=== PATIENT | female | born 1960 | race Caucasian/White ===

== ENCOUNTER 2021-01-17 14:56 | Inpatient (IN) | payer BC ==
[~2021-01-17] VITALS: Ht 157.5 cm; Wt 66.2 kg
--- NOTE | 2021-01-17 15:27 | PHYS DOC ---
Past Medical History Past Medical History: No Pertinent History Past Surgical History: Other Additional Past Surgical Histo: Right thumb reattached Smoking Status: Never Smoker General Adult EDM: Chief Complaint: SHORTNESS OF BREATH HPI: HPI: Patient is a 60-year-old female that presents today via [facility] with increased shortness of breath. Patient states she was diagnosed positive for Covid on January 08, she states that since of this week January 15 she has had increased shortness of breath. Patient was seen at a clinic in her hometown and on Tuesday and was given an inhaler for increased shortness of breath and instructed to follow-up in the emergency department if shortness of breath increased. Per EMS result report patient was 70 to 80% on room air with exertion at the scene, patient was placed on 2 L via nasal cannula and her sats increased to 92%. Patient has not had the Covid vaccine. Review of Systems: Review of Systems: Constitutional: Denies fever or chills. [] Eyes: Denies change in visual acuity. [] HENT: Denies nasal congestion or sore throat. [] Respiratory: cough or shortness of breath. [] Cardiovascular: chest pain with coughing reported GI: Denies abdominal pain, nausea, vomiting, bloody stools or diarrhea. [] : Denies dysuria. [] Musculoskeletal: Denies back pain or joint pain. [] Integument: Denies rash. [] Neurologic: Denies headache, focal weakness or sensory changes. [] Endocrine: Denies polyuria or polydipsia. [] Lymphatic: Denies swollen glands. [] Psychiatric: Denies depression or anxiety. [] Heart Score: C/O Chest Pain: N/A Risk Factors: Risk Factors: DM, Current or recent (<one month) smoker, HTN, HLP, family history of CAD, obesity. Risk Scores: Score 0 - 3: 2.5% MACE over next 6 weeks - Discharge Home Score 4 - 6: 20.3% MACE over next 6 weeks - Admit for Clinical Observation Score 7 - 10: 72.7% MACE over next 6 weeks - Early Invasive Strategies Current Medications: Current Medications Medications (Trade) Dose Ordered Sig/Narendra Start Time Stop Time Status Last Admin Dose Admin Dexamethasone Sodium Phosphate (Decadron) 10 mg 1X ONCE 01/17/21 15:30 01/17/21 15:31 Allergies: Allergies: Allergies Coded Allergies Type Severity Reaction Last Updated Verified No Known Drug Allergies 08/19/16 No Physical Exam: PE: Constitutional: Well developed, well nourished, moderate distress HENT: Normocephalic, atraumatic, bilateral external ears normal, oropharynx moist, no oral exudates, nose normal. [] Eyes: PERRLA, EOMI, conjunctiva normal, no discharge. [] Neck: Normal range of motion, no tenderness, supple, no stridor. [] Cardiovascular:Heart rate regular and tachycardia Lungs & Thorax: Bilateral breath sound crackes and nonproductive cough Abdomen: Bowel sounds normal, soft, no tenderness, no masses, no pulsatile masses. [] Skin: Warm, dry, no erythema, no rash. [] Back: No tenderness, no CVA tenderness. [] Extremities: No tenderness, no cyanosis, no clubbing, ROM intact, no edema. [] Neurologic: Alert and oriented X 3, normal motor function, normal sensory function, no focal deficits noted. [] Psychologic: Affect normal, judgement normal, mood normal. [] Current Patient Data: Labs: Laboratory Tests Test 01/17/21 15:30 White Blood Count 5.8 x10^3/uL Red Blood Count 4.11 x10^6/uL Hemoglobin 12.6 g/dL Hematocrit 35.9 % Mean Corpuscular Volume 87 fL Mean Corpuscular Hemoglobin 31 pg Mean Corpuscular Hemoglobin Concent 35 g/dL Red Cell Distribution Width 12.3 % Platelet Count 185 x10^3/uL Neutrophils (%) (Auto) 88 % Lymphocytes (%) (Auto) 9 % Monocytes (%) (Auto) 3 % Eosinophils (%) (Auto) 0 % Basophils (%) (Auto) 0 % Neutrophils # (Auto) 5.1 x10^3/uL Lymphocytes # (Auto) 0.5 x10^3/uL Monocytes # (Auto) 0.2 x10^3/uL Eosinophils # (Auto) 0.0 x10^3/uL Basophils # (Auto) 0.0 x10^3/uL Sodium Level 132 mmol/L Potassium Level 4.6 mmol/L Chloride Level 96 mmol/L Carbon Dioxide Level 29 mmol/L Anion Gap 7 Blood Urea Nitrogen 10 mg/dL Creatinine 0.8 mg/dL Estimated GFR (Cockcroft-Gault) 73.4 BUN/Creatinine Ratio 13 Glucose Level 116 mg/dL Calcium Level 8.3 mg/dL Total Bilirubin 0.4 mg/dL Aspartate Amino Transf (AST/SGOT) 78 U/L Alanine Aminotransferase (ALT/SGPT) 57 U/L Alkaline Phosphatase 46 U/L Total Protein 7.2 g/dL Albumin 3.0 g/dL Albumin/Globulin Ratio 0.7 Current Medications Medications (Trade) Dose Ordered Sig/Narendra Route PRN Reason Start Time Stop Time Status Last Admin Dose Admin Dexamethasone Sodium Phosphate (Decadron) 10 mg 1X ONCE IV 01/17/21 15:30 01/17/21 15:31 DC 01/17/21 15:35 Acetaminophen (Tylenol) 1,000 mg 1X ONCE PO 01/17/21 16:15 01/17/21 16:16 Vital Signs: Vital Signs Date Time Temp Pulse Resp B/P (MAP) Pulse Ox O2 Delivery O2 Flow Rate FiO2 01/17/21 14:59 102.3 104 34 119/58 (78) 95 3.0 102.3 EKG: EKG: EKG completed at 1521 shows sinus tachycardia with no ectopy no STEMI per Dr. Avilez at 1527 [] Radiology/Procedures: Radiology/Procedures: PROCEDURE: CHEST AP ONLY XR CHEST 1V Clinical History: Reason: SOA / Spl. Instructions: / History: Technique: AP view of the chest was obtained at 01/17/2021 3:21 PM. Comparison: January 08, 2021. Findings: The heart is mildly large. The portal vessels appear normal. There is patchy peripheral opacities in the mid and lower lungs bilaterally. Impression: Moderate bilateral pulmonary infiltrates likely atypical pneumonia. Electronically signed by: Anthony Luther III, MD (01/17/2021 3:24 PM) [facility] Course & Med Decision Making: Course & Med Decision Making Pertinent Labs and Imaging studies reviewed. (See chart for details) 1620 reexamine of patient patient's respiratory rate continues to be 39, O2 sat on 3 L is 95%, HR99 patient states she feels better, and for patient because of increased oxygen demand and the need for oxygen patient will be admitted to the hospital [address] Arias patient will be admitted to their service with a consult to pulmonary. [] Dragon Disclaimer: Dragon Disclaimer: This electronic medical record was generated, in whole or in part, using a voice recognition dictation system. Departure Departure Impression: Primary Impression: COVID-19 Additional Impression: Shortness of breath Disposition: 09 ADMITTED INPATIENT Admitting Physician: DORIS Condition: GUARDED Referrals: NO PCP (PCP) Scripts No Active Prescriptions or Reported Meds ANGELA PAULSON APRN Jan 17, 2021 15:27
[2021-01-17] MEDS ORDERED: DEXAMETHASONE SOD PHOS 20 MG/5 ML VIAL. IV ONE (15:30)
[2021-01-17 15:43] LABS: BASO % 0 % (0-3); EOS % 0 % (0-3); HEMATOCRIT 35.9 % (36.0-47.0); HEMOGLOBIN 12.6 g/dL (12.0-15.5); LYMPH # 0.5 x10^3/uL (1.0-4.8); LYMPH % 9 % (24-48); MEAN CORPUSCULAR HEMOGLOBIN 31 pg (25-35); MEAN CORPUSCULAR HGB CONC 35 g/dL (31-37); MEAN CORPUSCULAR VOLUME 87 fL (79-100); MONO # 0.2 x10^3/uL (0.0-1.1); MONO % 3 % (0-9); NEUT # 5.1 x10^3/uL (1.8-7.7); NEUT % 88 % (31-73); PLATELET COUNT 185 x10^3/uL (140-400); RED BLOOD COUNT 4.11 x10^6/uL (3.50-5.40); RED CELL DISTRIBUTION WIDTH 12.3 % (11.5-14.5); WHITE BLOOD COUNT 5.8 x10^3/uL (4.0-11.0)
[2021-01-17 16:03] LABS: CALCIUM 8.3 mg/dL (8.5-10.1); CREATININE 0.8 mg/dL (0.6-1.0); GFR 73.4; POTASSIUM 4.6 mmol/L (3.5-5.1)
[2021-01-17 16:06] LABS: ALBUMIN/GLOBULIN RATIO 0.7 (1.0-1.7); TOTAL BILIRUBIN 0.4 mg/dL (0.2-1.0); TOTAL PROTEIN 7.2 g/dL (6.4-8.2)
[2021-01-17] MEDS ORDERED: ACETAMINOPHEN 500 MG TABLET PO ONE (16:15)
[2021-01-17] MEDS ORDERED: ACETAMINOPHEN 325 MG TABLET. PO PRN ×2 (17:00→17:30)
[2021-01-17] MEDS ORDERED: DEXTROSE 50% 25 GM / 50ML DISP.SYRIN. IV PRN (17:30)
[2021-01-17] MEDS ORDERED: DOCUSATE SODIUM 100 MG CAPSULE. PO PRN (17:30)
[2021-01-17] MEDS ORDERED: PROCHLORPERAZINE 10 MG/2 ML VIAL. IV PRN (17:30)
[2021-01-17] MEDS ORDERED: SENNOSIDES 8.6 MG TABLET PO PRN (17:30)
[2021-01-17] MEDS ORDERED: ZOLPIDEM 5 MG TABLET. PO PRN (17:30)
[2021-01-17] MEDS ORDERED: ONDANSETRON PF 4 MG/2 ML VIAL. IVP PRN (17:30)
--- NOTE | 2021-01-17 17:37 | PDOC1 ---
History and Physical Date of Service: DOS: DATE: 01/17/21 TIME: 17:28 Chief Complaint: Chief Complain: Shortness of breath History of Present Illness: HPI: History obtained from discussion with the ED nurse practitioner and chart review: 60-year-old female with no significant past medical history who presents via EMS with increased shortness of breath for the past 3 days. She was diagnosed with Covid on January 08. She was seen on Tuesday in the clinic for shortness of breath and she was given an inhaler and was sent home. In route patient's O2 saturations was between 70 to 80% on room air she was placed on a 3 L nasal cannula and her O2 saturation improved to 91%. Denies fevers, nausea vomiting, diarrhea, abdominal pain, chest pain, dysuria or hematuria. Past Medical/Surgical History: PMH/PSH: Past Medical History: No Pertinent History Past Surgical History: Right thumb reattached Allergies: Allergies: Coded Allergies: No Known Drug Allergies (Unverified , 08/19/16) Family History: Family History: Reviewed with no relevant findings Social History: Social History: Smoking Status: Never Smoker Current Medications: Current Medications Current Medications Dexamethasone Sodium Phosphate (Decadron) 10 mg 1X ONCE IV Last administered on 01/17/21at 15:35; Start 01/17/21 at 15:30; Stop 01/17/21 at 15:31; Status DC Acetaminophen (Tylenol) 1,000 mg 1X ONCE PO Last administered on 01/17/21at 16:21; Start 01/17/21 at 16:15; Stop 01/17/21 at 16:16; Status DC Remdesivir 200 mg/ Sodium Chloride 210 ml @ 210 mls/hr 1X ONCE IV ; Start 01/17/21 at 18:00; Stop 01/17/21 at 18:59 Remdesivir 100 mg/ Sodium Chloride 230 ml @ 460 mls/hr Q24H IV ; Start 01/18/21 at 18:00; Stop 01/21/21 at 18:29 Acetaminophen (Tylenol) 650 mg PRN Q4HRS PRN PO FEVER > 100.3'F; Start 01/17/21 at 17:00; Stop 01/18/21 at 16:59 Active Scripts Active No Active Prescriptions or Reported Medications ROS: Review of Systems Review of System REVIEW OF SYSTEMS: GENERAL: Denies weakness SKIN: No bruising, hair changes or rashes. EYES: No blurred, double or loss of vision. NOSE AND THROAT: No history of nosebleeds, hoarseness or sore throat. HEART: No history of palpitations, chest pain or shortness of breath on exertion. LUNGS: Denies cough, hemoptysis, wheezing or shortness of breath. GASTROINTESTINAL: Denies changes in appetite, nausea, vomiting, diarrhea or constipation. GENITOURINARY: No history of frequency, urgency, hesitancy or nocturia. NEUROLOGIC: Denies history of numbness, tingling, or tremor. PSYCHIATRIC: No history of panic, anxiety or depression. ENDOCRINE: No history of heat or cold intolerance, polyuria or polydipsia. EXTREMITIES: Denies joint pain, pain on walking or stiffness. Physical Exam: Vital Signs: Vital Signs Date Time Temp Pulse Resp B/P (MAP) Pulse Ox O2 Delivery O2 Flow Rate FiO2 01/17/21 14:59 102.3 104 34 119/58 (78) 95 3.0 102.3 Physcial Exam: GEN: No apparent distress. Alert and oriented HEENT: Normal cephalic, atraumatic, external auditory canals are patent EYES: Extraocular muscles are intact, pupil are equally round and reactive to light and accommodation MUSCULOSKELETAL: Well developed , well nourished, good range of motion ENDOCRINE: No thyromegaly was palpated LYMPHATICS: No cervical chain or axillary nodes were noted HEMATOPOIETIC: No bruising NECK: Supple, no JVD, no thyromegaly was noted LUNGS: Clear to auscultation in all lung singh without rhonchi or wheezing HEART: RRR, S!, S2 present. Peripheral pulses intact, no obvious murmurs noted ABDOMEN: Soft, nontender. Positive bowel sounds, no organomegaly, normal bowel sounds EXTREMITIES: Without clubbing, cyanosis, or edema. Pedal pulses intact. Negative Homans sign NEUROLOGIC: Normal speech and tone. A&O x 3, moves all extremities, no obvious focal deficits PSYCHIATRIC: Normal affect, normal mood. Stable SKIN: No ulcerations or rashes, good skin turgor, no jaundice VASCULAR: Good capillary refill, neurovascular bundle appears to be intact Labs: Labs: Laboratory Tests Test 01/17/21 15:30 White Blood Count 5.8 x10^3/uL (4.0-11.0) Red Blood Count 4.11 x10^6/uL (3.50-5.40) Hemoglobin 12.6 g/dL (12.0-15.5) Hematocrit 35.9 % (36.0-47.0) Mean Corpuscular Volume 87 fL (79-100) Mean Corpuscular Hemoglobin 31 pg (25-35) Mean Corpuscular Hemoglobin Concent 35 g/dL (31-37) Red Cell Distribution Width 12.3 % (11.5-14.5) Platelet Count 185 x10^3/uL (140-400) Neutrophils (%) (Auto) 88 % (31-73) Lymphocytes (%) (Auto) 9 % (24-48) Monocytes (%) (Auto) 3 % (0-9) Eosinophils (%) (Auto) 0 % (0-3) Basophils (%) (Auto) 0 % (0-3) Neutrophils # (Auto) 5.1 x10^3/uL (1.8-7.7) Lymphocytes # (Auto) 0.5 x10^3/uL (1.0-4.8) Monocytes # (Auto) 0.2 x10^3/uL (0.0-1.1) Eosinophils # (Auto) 0.0 x10^3/uL (0.0-0.7) Basophils # (Auto) 0.0 x10^3/uL (0.0-0.2) Sodium Level 132 mmol/L (136-145) Potassium Level 4.6 mmol/L (3.5-5.1) Chloride Level 96 mmol/L (98-107) Carbon Dioxide Level 29 mmol/L (21-32) Anion Gap 7 (6-14) Blood Urea Nitrogen 10 mg/dL (7-20) Creatinine 0.8 mg/dL (0.6-1.0) Estimated GFR (Cockcroft-Gault) 73.4 BUN/Creatinine Ratio 13 (6-20) Glucose Level 116 mg/dL (70-99) Calcium Level 8.3 mg/dL (8.5-10.1) Total Bilirubin 0.4 mg/dL (0.2-1.0) Aspartate Amino Transf (AST/SGOT) 78 U/L (15-37) Alanine Aminotransferase (ALT/SGPT) 57 U/L (14-59) Alkaline Phosphatase 46 U/L (46-116) Total Protein 7.2 g/dL (6.4-8.2) Albumin 3.0 g/dL (3.4-5.0) Albumin/Globulin Ratio 0.7 (1.0-1.7) Laboratory Tests Test 01/17/21 15:30 White Blood Count 5.8 x10^3/uL (4.0-11.0) Red Blood Count 4.11 x10^6/uL (3.50-5.40) Hemoglobin 12.6 g/dL (12.0-15.5) Hematocrit 35.9 % (36.0-47.0) Mean Corpuscular Volume 87 fL (79-100) Mean Corpuscular Hemoglobin 31 pg (25-35) Mean Corpuscular Hemoglobin Concent 35 g/dL (31-37) Red Cell Distribution Width 12.3 % (11.5-14.5) Platelet Count 185 x10^3/uL (140-400) Neutrophils (%) (Auto) 88 % (31-73) Lymphocytes (%) (Auto) 9 % (24-48) Monocytes (%) (Auto) 3 % (0-9) Eosinophils (%) (Auto) 0 % (0-3) Basophils (%) (Auto) 0 % (0-3) Neutrophils # (Auto) 5.1 x10^3/uL (1.8-7.7) Lymphocytes # (Auto) 0.5 x10^3/uL (1.0-4.8) Monocytes # (Auto) 0.2 x10^3/uL (0.0-1.1) Eosinophils # (Auto) 0.0 x10^3/uL (0.0-0.7) Basophils # (Auto) 0.0 x10^3/uL (0.0-0.2) Sodium Level 132 mmol/L (136-145) Potassium Level 4.6 mmol/L (3.5-5.1) Chloride Level 96 mmol/L (98-107) Carbon Dioxide Level 29 mmol/L (21-32) Anion Gap 7 (6-14) Blood Urea Nitrogen 10 mg/dL (7-20) Creatinine 0.8 mg/dL (0.6-1.0) Estimated GFR (Cockcroft-Gault) 73.4 BUN/Creatinine Ratio 13 (6-20) Glucose Level 116 mg/dL (70-99) Calcium Level 8.3 mg/dL (8.5-10.1) Total Bilirubin 0.4 mg/dL (0.2-1.0) Aspartate Amino Transf (AST/SGOT) 78 U/L (15-37) Alanine Aminotransferase (ALT/SGPT) 57 U/L (14-59) Alkaline Phosphatase 46 U/L (46-116) Total Protein 7.2 g/dL (6.4-8.2) Albumin 3.0 g/dL (3.4-5.0) Albumin/Globulin Ratio 0.7 (1.0-1.7) Images: Images PROCEDURE: CHEST AP ONLY Impression: Moderate bilateral pulmonary infiltrates likely atypical pneumonia. Assessment/Plan Assessment/Plan Acute hypoxic respiratory failure COVID-19 pneumonia Acute electrolyte derangementhyponatremia, hypochloremia suggestive of volume depletion Moderate protein malnutrition Admit to medicine for further management Pulmonology consult Continue IV thiamine and vitamin C IV Solu-Medrol every 8 hours IV Remdesivir if patient requires O2 supplementation beyond there baseline Pending ferritin, LDH, CRP, D-dimer labs Titrate O2 supplementation to maintain O2 saturation greater than 92% Empiric IV antibiotics if patient has clinical presentation for bacterial pneumonia [] for DVT prophylaxis [] GI prophylaxis ADA diet Full code Discussed with RN and SW Disposition [] Surrogate decision maker is the [] Justifications for Admission Other Justification GYPSY SLATER MD Jan 17, 2021 17:37
[2021-01-17] MEDS ORDERED: REMDESIVIR LOAD in IV NORMAL SALINE 250ML TV IV ONE (18:00)
[2021-01-17] MEDS: PANTOPRAZOLE 40 MG TABLET.DR. PO SCH (19:23)
--- NOTE | 2021-01-17 19:42 | EKG ---
[facility] [address] [place] [address] Test Date: 2021-01-17 Test Time: 15:21:02 Pat Name: DOM JESUS Department: Room: [facility] Gender: F Statement Clerks Supervisor: : 1960 Requested By: ANGELA PAULSON Order Number: [id number] Reading MD: Jake Segovia Measurements Intervals [place] Rate: 107 P: -121 MS: 104 QRS: 27 QRSD: 72 T: 37 QT: 300 QTc: 405 Interpretive Statements SINUS TACHYCARDIA Electronically Signed On 01-18-2021 16:38:57 CDT by Jake Segovia
[2021-01-17 21:43] VITALS: BP 99/55
[2021-01-17] MEDS: ASCORBIC ACID 1,000 MG TABLET PO SCH (23:02)
[2021-01-17] MEDS: ENOXAPARIN 40 MG/0.4 ML SYRINGE. SQ SCH (23:02)
[2021-01-17] MEDS: ZINC SULFATE 220 MG CAPSULE. PO SCH (23:03)
[2021-01-17] MEDS: THIAMINE 100 MG TABLET. PO SCH (23:03)
[2021-01-18 03:00] VITALS: BP 101/59
[2021-01-18 05:16] LABS: BASO % 0 % (0-3); EOS % 0 % (0-3); HEMATOCRIT 36.7 % (36.0-47.0); HEMOGLOBIN 12.9 g/dL (12.0-15.5); LYMPH # 0.5 x10^3/uL (1.0-4.8); LYMPH % 12 % (24-48); MEAN CORPUSCULAR HEMOGLOBIN 31 pg (25-35); MEAN CORPUSCULAR HGB CONC 35 g/dL (31-37); MEAN CORPUSCULAR VOLUME 88 fL (79-100); MONO # 0.2 x10^3/uL (0.0-1.1); MONO % 4 % (0-9); NEUT # 3.3 x10^3/uL (1.8-7.7); NEUT % 84 % (31-73); PLATELET COUNT 208 x10^3/uL (140-400); RED BLOOD COUNT 4.17 x10^6/uL (3.50-5.40); RED CELL DISTRIBUTION WIDTH 12.4 % (11.5-14.5); WHITE BLOOD COUNT 3.9 x10^3/uL (4.0-11.0)
[2021-01-18 05:54] LABS: CALCIUM 8.6 mg/dL (8.5-10.1); CREATININE 0.7 mg/dL (0.6-1.0); GFR 85.6; MAGNESIUM 2.5 mg/dL (1.8-2.4); PHOSPHORUS 3.1 mg/dL (2.6-4.7); POTASSIUM 3.7 mmol/L (3.5-5.1)
--- NOTE | 2021-01-18 06:43 | PDOC ---
PULMONARY PROGRESS NOTES DATE: 01/18/21 TIME: 06:42 Vitals Vital Signs Date Time Temp Pulse Resp B/P (MAP) Pulse Ox O2 Delivery O2 Flow Rate FiO2 01/18/21 03:00 98.1 69 18 101/59 (73) 5.0 98.1 01/17/21 21:43 92 Nasal Cannula Labs Laboratory Tests Test 01/17/21 15:30 01/18/21 04:55 White Blood Count 5.8 x10^3/uL (4.0-11.0) 3.9 x10^3/uL (4.0-11.0) Red Blood Count 4.11 x10^6/uL (3.50-5.40) 4.17 x10^6/uL (3.50-5.40) Hemoglobin 12.6 g/dL (12.0-15.5) 12.9 g/dL (12.0-15.5) Hematocrit 35.9 % (36.0-47.0) 36.7 % (36.0-47.0) Mean Corpuscular Volume 87 fL (79-100) 88 fL (79-100) Mean Corpuscular Hemoglobin 31 pg (25-35) 31 pg (25-35) Mean Corpuscular Hemoglobin Concent 35 g/dL (31-37) 35 g/dL (31-37) Red Cell Distribution Width 12.3 % (11.5-14.5) 12.4 % (11.5-14.5) Platelet Count 185 x10^3/uL (140-400) 208 x10^3/uL (140-400) Neutrophils (%) (Auto) 88 % (31-73) 84 % (31-73) Lymphocytes (%) (Auto) 9 % (24-48) 12 % (24-48) Monocytes (%) (Auto) 3 % (0-9) 4 % (0-9) Eosinophils (%) (Auto) 0 % (0-3) 0 % (0-3) Basophils (%) (Auto) 0 % (0-3) 0 % (0-3) Neutrophils # (Auto) 5.1 x10^3/uL (1.8-7.7) 3.3 x10^3/uL (1.8-7.7) Lymphocytes # (Auto) 0.5 x10^3/uL (1.0-4.8) 0.5 x10^3/uL (1.0-4.8) Monocytes # (Auto) 0.2 x10^3/uL (0.0-1.1) 0.2 x10^3/uL (0.0-1.1) Eosinophils # (Auto) 0.0 x10^3/uL (0.0-0.7) 0.0 x10^3/uL (0.0-0.7) Basophils # (Auto) 0.0 x10^3/uL (0.0-0.2) 0.0 x10^3/uL (0.0-0.2) Sodium Level 132 mmol/L (136-145) 138 mmol/L (136-145) Potassium Level 4.6 mmol/L (3.5-5.1) 3.7 mmol/L (3.5-5.1) Chloride Level 96 mmol/L (98-107) 101 mmol/L (98-107) Carbon Dioxide Level 29 mmol/L (21-32) 29 mmol/L (21-32) Anion Gap 7 (6-14) 8 (6-14) Blood Urea Nitrogen 10 mg/dL (7-20) 13 mg/dL (7-20) Creatinine 0.8 mg/dL (0.6-1.0) 0.7 mg/dL (0.6-1.0) Estimated GFR (Cockcroft-Gault) 73.4 85.6 BUN/Creatinine Ratio 13 (6-20) Glucose Level 116 mg/dL (70-99) 144 mg/dL (70-99) Calcium Level 8.3 mg/dL (8.5-10.1) 8.6 mg/dL (8.5-10.1) Total Bilirubin 0.4 mg/dL (0.2-1.0) Aspartate Amino Transf (AST/SGOT) 78 U/L (15-37) Alanine Aminotransferase (ALT/SGPT) 57 U/L (14-59) Alkaline Phosphatase 46 U/L (46-116) C-Reactive Protein, Quantitative 101.0 mg/L (0-3.3) Total Protein 7.2 g/dL (6.4-8.2) Albumin 3.0 g/dL (3.4-5.0) Albumin/Globulin Ratio 0.7 (1.0-1.7) D-Dimer (Jessi) 0.62 ug/mlFEU (0.00-0.50) Phosphorus Level 3.1 mg/dL (2.6-4.7) Magnesium Level 2.5 mg/dL (1.8-2.4) Laboratory Tests Test 01/17/21 15:30 01/18/21 04:55 White Blood Count 5.8 x10^3/uL (4.0-11.0) 3.9 x10^3/uL (4.0-11.0) Red Blood Count 4.11 x10^6/uL (3.50-5.40) 4.17 x10^6/uL (3.50-5.40) Hemoglobin 12.6 g/dL (12.0-15.5) 12.9 g/dL (12.0-15.5) Hematocrit 35.9 % (36.0-47.0) 36.7 % (36.0-47.0) Mean Corpuscular Volume 87 fL (79-100) 88 fL (79-100) Mean Corpuscular Hemoglobin 31 pg (25-35) 31 pg (25-35) Mean Corpuscular Hemoglobin Concent 35 g/dL (31-37) 35 g/dL (31-37) Red Cell Distribution Width 12.3 % (11.5-14.5) 12.4 % (11.5-14.5) Platelet Count 185 x10^3/uL (140-400) 208 x10^3/uL (140-400) Neutrophils (%) (Auto) 88 % (31-73) 84 % (31-73) Lymphocytes (%) (Auto) 9 % (24-48) 12 % (24-48) Monocytes (%) (Auto) 3 % (0-9) 4 % (0-9) Eosinophils (%) (Auto) 0 % (0-3) 0 % (0-3) Basophils (%) (Auto) 0 % (0-3) 0 % (0-3) Neutrophils # (Auto) 5.1 x10^3/uL (1.8-7.7) 3.3 x10^3/uL (1.8-7.7) Lymphocytes # (Auto) 0.5 x10^3/uL (1.0-4.8) 0.5 x10^3/uL (1.0-4.8) Monocytes # (Auto) 0.2 x10^3/uL (0.0-1.1) 0.2 x10^3/uL (0.0-1.1) Eosinophils # (Auto) 0.0 x10^3/uL (0.0-0.7) 0.0 x10^3/uL (0.0-0.7) Basophils # (Auto) 0.0 x10^3/uL (0.0-0.2) 0.0 x10^3/uL (0.0-0.2) Sodium Level 132 mmol/L (136-145) 138 mmol/L (136-145) Potassium Level 4.6 mmol/L (3.5-5.1) 3.7 mmol/L (3.5-5.1) Chloride Level 96 mmol/L (98-107) 101 mmol/L (98-107) Carbon Dioxide Level 29 mmol/L (21-32) 29 mmol/L (21-32) Anion Gap 7 (6-14) 8 (6-14) Blood Urea Nitrogen 10 mg/dL (7-20) 13 mg/dL (7-20) Creatinine 0.8 mg/dL (0.6-1.0) 0.7 mg/dL (0.6-1.0) Estimated GFR (Cockcroft-Gault) 73.4 85.6 BUN/Creatinine Ratio 13 (6-20) Glucose Level 116 mg/dL (70-99) 144 mg/dL (70-99) Calcium Level 8.3 mg/dL (8.5-10.1) 8.6 mg/dL (8.5-10.1) Total Bilirubin 0.4 mg/dL (0.2-1.0) Aspartate Amino Transf (AST/SGOT) 78 U/L (15-37) Alanine Aminotransferase (ALT/SGPT) 57 U/L (14-59) Alkaline Phosphatase 46 U/L (46-116) C-Reactive Protein, Quantitative 101.0 mg/L (0-3.3) Total Protein 7.2 g/dL (6.4-8.2) Albumin 3.0 g/dL (3.4-5.0) Albumin/Globulin Ratio 0.7 (1.0-1.7) D-Dimer (Jessi) 0.62 ug/mlFEU (0.00-0.50) Phosphorus Level 3.1 mg/dL (2.6-4.7) Magnesium Level 2.5 mg/dL (1.8-2.4) Medications Active Scripts Medications Dose Route/Sig Max Daily Dose Days Date Category No Active Prescriptions or Reported Medications Rx Impression . Full note dictated Added tocilizumab Continue current support FILIPPO CALLAHAN MD Jan 18, 2021 06:43
--- NOTE | 2021-01-18 06:58 | CONS ---
DATE OF CONSULTATION: 01/18/2021 ATTENDING PHYSICIAN: Reece Arias MD HISTORY OF PRESENT ILLNESS: The patient is a 60-year-old unvaccinated presented with progressive dyspnea. She was diagnosed with COVID-19 on the 01/08. Her family members were likewise tested positive. The patient was initially found to have saturations of 70-80% on room air. She was admitted. She has been given remdesivir. She has no past pulmonary history. She now feels better. She is on oxygen supplementation. PAST MEDICAL AND PAST SURGICAL HISTORY: None. REVIEW OF SYSTEMS: As indicated above, otherwise other systems were reviewed and negative. CURRENT MEDICATIONS: List was reviewed. ALLERGIES: AMOXICILLIN. SOCIAL HISTORY: She works as a teacher. Denies any alcohol or tobacco use. PHYSICAL EXAMINATION: The patient was seen during the COVID-19 pandemic on visual inspection. She was in no respiratory distress. No paroxysmal breathing pattern. No accessory muscles being used. Skin show no rashes. LABORATORY DATA: Reviewed. She had a lymphopenia with a normal white count initially. Sodium was low. Albumin was low. Chest x-ray, compatible with COVID-19. IMPRESSION: 1. Acute hypoxemic respiratory failure. 2. COVID-19 viral pneumonia, acute lung injury. PLAN: 1. Continue current support with steroids. 2. The patient started on remdesivir. 3. We will add tocilizumab. 4. Lovenox. I do appreciate the privilege in sharing in patient's care. LYRIC RAM: Thomas TID: [id number]
[2021-01-18 07:00] VITALS: BP 96/58
[2021-01-18] MEDS ORDERED: TOCILIZUMAB 400 MG in IV NS TV=100ML IV ONE (09:00)
[2021-01-18] MEDS: DEXAMETHASONE SOD PHOS 4 MG/ML VIAL IVP SCH (09:20)
[2021-01-18] MEDS: THIAMINE 100 MG TABLET. PO SCH (09:20)
[2021-01-18] MEDS: PANTOPRAZOLE 40 MG TABLET.DR. PO SCH (09:20)
[2021-01-18] MEDS: ASCORBIC ACID 1,000 MG TABLET PO SCH ×3 (09:20→23:21)
[2021-01-18] MEDS: ZINC SULFATE 220 MG CAPSULE. PO SCH (09:20)
--- NOTE | 2021-01-18 10:43 | PDOC ---
[employer] PROGRESS NOTE Date of Service DOS: DATE: 01/18/21 TIME: 10:40 Chief Complaint Chief Complaint Acute hypoxic respiratory failure COVID-19 pneumonia Acute electrolyte derangementhyponatremia, hypochloremia suggestive of volume depletion Moderate protein malnutrition Admit to medicine for further management Pulmonology consult Continue IV thiamine and vitamin C IV Solu-Medrol every 8 hours IV Remdesivir if patient requires O2 supplementation beyond there baseline Pending ferritin, LDH, CRP, D-dimer labs Titrate O2 supplementation to maintain O2 saturation greater than 92% Empiric IV antibiotics if patient has clinical presentation for bacterial pneumonia Lovenox for DVT prophylaxis Protonix while on steroids GI prophylaxis ADA diet Full code Discussed with RN and SW Disposition inpatient management as above Surrogate decision maker is the Mimi Jones History of Present Illness History of Present Illness 60-year-old female with no significant past medical history who presents via EMS with increased shortness of breath for the past 3 days. She was diagnosed with Covid on January 08. She was seen on Tuesday in the clinic for shortness of breath and she was given an inhaler and was sent home. In route patient's O2 saturations was between 70 to 80% on room air she was placed on a 3 L nasal cannula and her O2 saturation improved to 91%. Denies fevers, nausea vomiting, diarrhea, abdominal pain, chest pain, dysuria or hematuria. 01/18/2021 No acute events overnight. Patient saturating 92% on 5 L nasal cannula. Nurse describes patient having continued cough which sounds like whooping cough. Will obtain a Bordetella PCR mainly due to the fact that patient has been having cough for past week or so. 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 Patient's chart, labs, images were reviewed and discussed with RN Vitals/I&O Vitals/I&O: Vital Signs Date Time Temp Pulse Resp B/P (MAP) Pulse Ox O2 Delivery O2 Flow Rate FiO2 01/18/21 07:00 98.4 76 20 96/58 (71) 88 Nasal Cannula 6.0 98.4 I & O 01/17/21 01/17/21 01/18/21 15:00 23:00 07:00 Intake Total 360 ml Balance 360 ml Physical Exam General: Alert, Oriented X3, Cooperative Heart: Regular rate Lungs: Clear Abdomen: Normal bowel sounds Extremities: No clubbing Skin: No rashes, No breakdown Labs Labs: Laboratory Tests Test 01/17/21 15:30 01/18/21 04:55 White Blood Count 5.8 x10^3/uL (4.0-11.0) 3.9 x10^3/uL (4.0-11.0) Red Blood Count 4.11 x10^6/uL (3.50-5.40) 4.17 x10^6/uL (3.50-5.40) Hemoglobin 12.6 g/dL (12.0-15.5) 12.9 g/dL (12.0-15.5) Hematocrit 35.9 % (36.0-47.0) 36.7 % (36.0-47.0) Mean Corpuscular Volume 87 fL (79-100) 88 fL (79-100) Mean Corpuscular Hemoglobin 31 pg (25-35) 31 pg (25-35) Mean Corpuscular Hemoglobin Concent 35 g/dL (31-37) 35 g/dL (31-37) Red Cell Distribution Width 12.3 % (11.5-14.5) 12.4 % (11.5-14.5) Platelet Count 185 x10^3/uL (140-400) 208 x10^3/uL (140-400) Neutrophils (%) (Auto) 88 % (31-73) 84 % (31-73) Lymphocytes (%) (Auto) 9 % (24-48) 12 % (24-48) Monocytes (%) (Auto) 3 % (0-9) 4 % (0-9) Eosinophils (%) (Auto) 0 % (0-3) 0 % (0-3) Basophils (%) (Auto) 0 % (0-3) 0 % (0-3) Neutrophils # (Auto) 5.1 x10^3/uL (1.8-7.7) 3.3 x10^3/uL (1.8-7.7) Lymphocytes # (Auto) 0.5 x10^3/uL (1.0-4.8) 0.5 x10^3/uL (1.0-4.8) Monocytes # (Auto) 0.2 x10^3/uL (0.0-1.1) 0.2 x10^3/uL (0.0-1.1) Eosinophils # (Auto) 0.0 x10^3/uL (0.0-0.7) 0.0 x10^3/uL (0.0-0.7) Basophils # (Auto) 0.0 x10^3/uL (0.0-0.2) 0.0 x10^3/uL (0.0-0.2) Sodium Level 132 mmol/L (136-145) 138 mmol/L (136-145) Potassium Level 4.6 mmol/L (3.5-5.1) 3.7 mmol/L (3.5-5.1) Chloride Level 96 mmol/L (98-107) 101 mmol/L (98-107) Carbon Dioxide Level 29 mmol/L (21-32) 29 mmol/L (21-32) Anion Gap 7 (6-14) 8 (6-14) Blood Urea Nitrogen 10 mg/dL (7-20) 13 mg/dL (7-20) Creatinine 0.8 mg/dL (0.6-1.0) 0.7 mg/dL (0.6-1.0) Estimated GFR (Cockcroft-Gault) 73.4 85.6 BUN/Creatinine Ratio 13 (6-20) Glucose Level 116 mg/dL (70-99) 144 mg/dL (70-99) Calcium Level 8.3 mg/dL (8.5-10.1) 8.6 mg/dL (8.5-10.1) Total Bilirubin 0.4 mg/dL (0.2-1.0) Aspartate Amino Transf (AST/SGOT) 78 U/L (15-37) Alanine Aminotransferase (ALT/SGPT) 57 U/L (14-59) Alkaline Phosphatase 46 U/L (46-116) C-Reactive Protein, Quantitative 101.0 mg/L (0-3.3) Total Protein 7.2 g/dL (6.4-8.2) Albumin 3.0 g/dL (3.4-5.0) Albumin/Globulin Ratio 0.7 (1.0-1.7) D-Dimer (Jessi) 0.62 ug/mlFEU (0.00-0.50) Phosphorus Level 3.1 mg/dL (2.6-4.7) Magnesium Level 2.5 mg/dL (1.8-2.4) Assessment and Plan Assessmemt and Plan Problems Medical Problems: (1) COVID-19 Status: Acute (2) Shortness of breath Status: Acute Comment Review of Relevant I have reviewed the following items chandan (where applicable) has been applied. Medications: Current Medications Medications (Trade) Dose Ordered Sig/Narendra Route PRN Reason Start Time Stop Time Status Last Admin Dose Admin Dexamethasone Sodium Phosphate (Decadron) 10 mg 1X ONCE IV 01/17/21 15:30 01/17/21 15:31 DC 01/17/21 15:35 Acetaminophen (Tylenol) 1,000 mg 1X ONCE PO 01/17/21 16:15 01/17/21 16:16 DC 01/17/21 16:21 Remdesivir 200 mg/ Sodium Chloride 210 ml @ 210 mls/hr 1X ONCE IV 01/17/21 18:00 01/17/21 18:59 DC 01/17/21 19:25 Ascorbic Acid (Vitamin C) 3,000 mg TID PO 01/17/21 21:00 01/18/21 09:20 Dexamethasone Sodium Phosphate (Decadron) 6 mg DAILY IVP 01/18/21 09:00 01/28/21 08:59 01/18/21 09:20 Thiamine Mononitrate (Vitamin B-1) 300 mg DAILY PO 01/17/21 18:30 01/18/21 09:20 Zinc Sulfate (Orazinc) 220 mg DAILY PO 01/17/21 18:30 01/18/21 09:20 Enoxaparin Sodium (Lovenox 40mg Syringe) 40 mg Q24H SQ 01/17/21 21:00 01/17/21 23:02 Pantoprazole Sodium (Protonix) 40 mg DAILYAC PO 01/17/21 18:30 01/18/21 09:20 Tocilizumab 400 mg/Sodium Chloride 100 ml @ 100 mls/hr 1X ONCE IV 01/18/21 09:00 01/18/21 09:59 DC 01/18/21 09:19 Justifications for Admission Other Justification COVID-19 positive test (U07.1, COVID-19) with Acute Pneumonia (J12.89, Other viral pneumonia) (If respiratory failure or sepsis present, add as separate assessment) GYPSY SLATER MD Jan 18, 2021 10:43
[2021-01-18 11:00] VITALS: BP 106/67
[2021-01-18 15:00] VITALS: BP 100/63
[2021-01-18] MEDS: REMDESIVIR 100mg in NORMAL SALINE 250ML X 4 DAYS IV SCH (17:16)
[2021-01-18 19:00] VITALS: BP 104/62
[2021-01-18 23:00] VITALS: BP 108/66
[2021-01-18] MEDS: ENOXAPARIN 40 MG/0.4 ML SYRINGE. SQ SCH (23:21)
[2021-01-19 03:15] VITALS: BP 98/57
[2021-01-19 03:53] LABS: BASO % 0 % (0-3); EOS % 0 % (0-3); HEMATOCRIT 38.3 % (36.0-47.0); HEMOGLOBIN 13.2 g/dL (12.0-15.5); LYMPH # 0.7 x10^3/uL (1.0-4.8); LYMPH % 11 % (24-48); MEAN CORPUSCULAR HEMOGLOBIN 31 pg (25-35); MEAN CORPUSCULAR HGB CONC 35 g/dL (31-37); MEAN CORPUSCULAR VOLUME 89 fL (79-100); MONO # 0.5 x10^3/uL (0.0-1.1); MONO % 7 % (0-9); NEUT # 5.4 x10^3/uL (1.8-7.7); NEUT % 82 % (31-73); PLATELET COUNT 294 x10^3/uL (140-400); RED BLOOD COUNT 4.29 x10^6/uL (3.50-5.40); RED CELL DISTRIBUTION WIDTH 12.3 % (11.5-14.5); WHITE BLOOD COUNT 6.6 x10^3/uL (4.0-11.0)
[2021-01-19 04:13] LABS: CALCIUM 8.6 mg/dL (8.5-10.1); CREATININE 0.9 mg/dL (0.6-1.0); GFR 64.1; MAGNESIUM 2.4 mg/dL (1.8-2.4); POTASSIUM 3.7 mmol/L (3.5-5.1)
--- NOTE | 2021-01-19 09:08 | PDOC ---
[employer] PROGRESS NOTE Date of Service DOS: DATE: 01/19/21 TIME: 09:07 Chief Complaint Chief Complaint Acute hypoxic respiratory failure COVID-19 pneumonia -status post Tocilizumab on 01/18/2021 Acute electrolyte derangementhyponatremia, hypochloremia suggestive of volume depletion Moderate protein malnutrition Admit to medicine for further management Pulmonology consult Continue IV thiamine and vitamin C IV Solu-Medrol every 8 hours IV Remdesivir if patient requires O2 supplementation beyond there baseline Pending ferritin, LDH, CRP, D-dimer labs Titrate O2 supplementation to maintain O2 saturation greater than 92% Empiric IV antibiotics if patient has clinical presentation for bacterial pneumonia Lovenox for DVT prophylaxis Protonix while on steroids GI prophylaxis ADA diet Full code Discussed with RN and SW Disposition inpatient management as above Surrogate decision maker is the Mimi Jones History of Present Illness History of Present Illness 60-year-old female with no significant past medical history who presents via EMS with increased shortness of breath for the past 3 days. She was diagnosed with Covid on January 08. She was seen on Tuesday in the clinic for shortness of breath and she was given an inhaler and was sent home. In route patient's O2 saturations was between 70 to 80% on room air she was placed on a 3 L nasal cannula and her O2 saturation improved to 91%. Denies fevers, nausea vomiting, diarrhea, abdominal pain, chest pain, dysuria or hematuria. 01/18: No acute events overnight. Patient saturating 92% on 5 L nasal cannula. Nurse describes patient having continued cough which sounds like whooping cough. Will obtain a Bordetella PCR mainly due to the fact that patient has been having cough for past week or so. 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 Patient's chart, labs, images were reviewed and discussed with RN Overnight requiring 15 L/min facemask O2 maintaining saturations 89 to 91%. Still has no sense of taste and very little appetite. Status post tocilizumab x1 dose on 01/18/2021. Her cough is still strongly annoying minimally improved with cough suppressants. Able to move with O2 desaturations. Had an episode of diarrhea and some GI upset. Remdesivir day 3 of 5 today Vitals/I&O Vitals/I&O: Vital Signs Date Time Temp Pulse Resp B/P (MAP) Pulse Ox O2 Delivery O2 Flow Rate FiO2 01/19/21 03:41 80 22 NonRebreather Mask 15.0 01/19/21 03:15 98.2 98/57 (71) 87 98.2 I & O 01/18/21 01/18/21 01/19/21 15:00 23:00 07:00 Output Total 300 ml Balance -300 ml Physical Exam General: Alert, Oriented X3, Cooperative Heart: Regular rate Lungs: Clear Abdomen: Normal bowel sounds Extremities: No clubbing Skin: No rashes, No breakdown Labs Labs: Laboratory Tests Test 01/19/21 03:15 White Blood Count 6.6 x10^3/uL (4.0-11.0) Red Blood Count 4.29 x10^6/uL (3.50-5.40) Hemoglobin 13.2 g/dL (12.0-15.5) Hematocrit 38.3 % (36.0-47.0) Mean Corpuscular Volume 89 fL (79-100) Mean Corpuscular Hemoglobin 31 pg (25-35) Mean Corpuscular Hemoglobin Concent 35 g/dL (31-37) Red Cell Distribution Width 12.3 % (11.5-14.5) Platelet Count 294 x10^3/uL (140-400) Neutrophils (%) (Auto) 82 % (31-73) Lymphocytes (%) (Auto) 11 % (24-48) Monocytes (%) (Auto) 7 % (0-9) Eosinophils (%) (Auto) 0 % (0-3) Basophils (%) (Auto) 0 % (0-3) Neutrophils # (Auto) 5.4 x10^3/uL (1.8-7.7) Lymphocytes # (Auto) 0.7 x10^3/uL (1.0-4.8) Monocytes # (Auto) 0.5 x10^3/uL (0.0-1.1) Eosinophils # (Auto) 0.0 x10^3/uL (0.0-0.7) Basophils # (Auto) 0.0 x10^3/uL (0.0-0.2) Sodium Level 139 mmol/L (136-145) Potassium Level 3.7 mmol/L (3.5-5.1) Chloride Level 101 mmol/L (98-107) Carbon Dioxide Level 28 mmol/L (21-32) Anion Gap 10 (6-14) Blood Urea Nitrogen 22 mg/dL (7-20) Creatinine 0.9 mg/dL (0.6-1.0) Estimated GFR (Cockcroft-Gault) 64.1 Glucose Level 133 mg/dL (70-99) Calcium Level 8.6 mg/dL (8.5-10.1) Magnesium Level 2.4 mg/dL (1.8-2.4) Assessment and Plan Assessmemt and Plan Problems Medical Problems: (1) COVID-19 Status: Acute (2) Shortness of breath Status: Acute Comment Review of Relevant I have reviewed the following items chandan (where applicable) has been applied. Medications: Current Medications Medications (Trade) Dose Ordered Sig/Narendra Route PRN Reason Start Time Stop Time Status Last Admin Dose Admin Remdesivir 100 mg/ Sodium Chloride 230 ml @ 460 mls/hr Q24H IV 01/18/21 18:00 01/21/21 18:29 01/18/21 17:16 Justifications for Admission Other Justification COVID-19 positive test (U07.1, COVID-19) with Acute Pneumonia (J12.89, Other viral pneumonia) (If respiratory failure or sepsis present, add as separate assessment) ARLETTE BONILLA MD Jan 19, 2021 09:08
[2021-01-19] MEDS: LORazepam 0.5 MG TABLET PO PRN (09:17)
[2021-01-19] MEDS: THIAMINE 100 MG TABLET. PO SCH (09:18)
[2021-01-19] MEDS: ZINC SULFATE 220 MG CAPSULE. PO SCH (09:18)
[2021-01-19] MEDS: ASCORBIC ACID 1,000 MG TABLET PO SCH ×3 (09:18→20:53)
[2021-01-19] MEDS: DEXAMETHASONE SOD PHOS 4 MG/ML VIAL IVP SCH (09:19)
[2021-01-19] MEDS: PANTOPRAZOLE 40 MG TABLET.DR. PO SCH (09:19)
[2021-01-19] MEDS: BENZONATATE 100 MG CAPSULE. PO SCH ×3 (09:19→20:53)
--- NOTE | 2021-01-19 09:31 | PDOC ---
PULMONARY PROGRESS NOTES DATE: 01/19/21 TIME: 09:31 Subjective Patient currently on 15 L oxygen continues to be short of breath Vitals Vital Signs Date Time Temp Pulse Resp B/P (MAP) Pulse Ox O2 Delivery O2 Flow Rate FiO2 01/19/21 03:41 80 22 NonRebreather Mask 15.0 01/19/21 03:15 98.2 98/57 (71) 87 98.2 ROS: No Nausea, No Chest Pain, No Abdominal Pain, No Increase Cough Lungs: Crackles Cardiovascular: S1, S2 Abdomen: Soft Neuro Exam: Alert Extremities: No Edema Skin: Warm Labs Laboratory Tests Test 01/17/21 15:30 01/18/21 04:55 01/19/21 03:15 White Blood Count 5.8 x10^3/uL (4.0-11.0) 3.9 x10^3/uL (4.0-11.0) 6.6 x10^3/uL (4.0-11.0) Red Blood Count 4.11 x10^6/uL (3.50-5.40) 4.17 x10^6/uL (3.50-5.40) 4.29 x10^6/uL (3.50-5.40) Hemoglobin 12.6 g/dL (12.0-15.5) 12.9 g/dL (12.0-15.5) 13.2 g/dL (12.0-15.5) Hematocrit 35.9 % (36.0-47.0) 36.7 % (36.0-47.0) 38.3 % (36.0-47.0) Mean Corpuscular Volume 87 fL (79-100) 88 fL (79-100) 89 fL (79-100) Mean Corpuscular Hemoglobin 31 pg (25-35) 31 pg (25-35) 31 pg (25-35) Mean Corpuscular Hemoglobin Concent 35 g/dL (31-37) 35 g/dL (31-37) 35 g/dL (31-37) Red Cell Distribution Width 12.3 % (11.5-14.5) 12.4 % (11.5-14.5) 12.3 % (11.5-14.5) Platelet Count 185 x10^3/uL (140-400) 208 x10^3/uL (140-400) 294 x10^3/uL (140-400) Neutrophils (%) (Auto) 88 % (31-73) 84 % (31-73) 82 % (31-73) Lymphocytes (%) (Auto) 9 % (24-48) 12 % (24-48) 11 % (24-48) Monocytes (%) (Auto) 3 % (0-9) 4 % (0-9) 7 % (0-9) Eosinophils (%) (Auto) 0 % (0-3) 0 % (0-3) 0 % (0-3) Basophils (%) (Auto) 0 % (0-3) 0 % (0-3) 0 % (0-3) Neutrophils # (Auto) 5.1 x10^3/uL (1.8-7.7) 3.3 x10^3/uL (1.8-7.7) 5.4 x10^3/uL (1.8-7.7) Lymphocytes # (Auto) 0.5 x10^3/uL (1.0-4.8) 0.5 x10^3/uL (1.0-4.8) 0.7 x10^3/uL (1.0-4.8) Monocytes # (Auto) 0.2 x10^3/uL (0.0-1.1) 0.2 x10^3/uL (0.0-1.1) 0.5 x10^3/uL (0.0-1.1) Eosinophils # (Auto) 0.0 x10^3/uL (0.0-0.7) 0.0 x10^3/uL (0.0-0.7) 0.0 x10^3/uL (0.0-0.7) Basophils # (Auto) 0.0 x10^3/uL (0.0-0.2) 0.0 x10^3/uL (0.0-0.2) 0.0 x10^3/uL (0.0-0.2) Sodium Level 132 mmol/L (136-145) 138 mmol/L (136-145) 139 mmol/L (136-145) Potassium Level 4.6 mmol/L (3.5-5.1) 3.7 mmol/L (3.5-5.1) 3.7 mmol/L (3.5-5.1) Chloride Level 96 mmol/L (98-107) 101 mmol/L (98-107) 101 mmol/L (98-107) Carbon Dioxide Level 29 mmol/L (21-32) 29 mmol/L (21-32) 28 mmol/L (21-32) Anion Gap 7 (6-14) 8 (6-14) 10 (6-14) Blood Urea Nitrogen 10 mg/dL (7-20) 13 mg/dL (7-20) 22 mg/dL (7-20) Creatinine 0.8 mg/dL (0.6-1.0) 0.7 mg/dL (0.6-1.0) 0.9 mg/dL (0.6-1.0) Estimated GFR (Cockcroft-Gault) 73.4 85.6 64.1 BUN/Creatinine Ratio 13 (6-20) Glucose Level 116 mg/dL (70-99) 144 mg/dL (70-99) 133 mg/dL (70-99) Calcium Level 8.3 mg/dL (8.5-10.1) 8.6 mg/dL (8.5-10.1) 8.6 mg/dL (8.5-10.1) Total Bilirubin 0.4 mg/dL (0.2-1.0) Aspartate Amino Transf (AST/SGOT) 78 U/L (15-37) Alanine Aminotransferase (ALT/SGPT) 57 U/L (14-59) Alkaline Phosphatase 46 U/L (46-116) C-Reactive Protein, Quantitative 101.0 mg/L (0-3.3) Total Protein 7.2 g/dL (6.4-8.2) Albumin 3.0 g/dL (3.4-5.0) Albumin/Globulin Ratio 0.7 (1.0-1.7) D-Dimer (Jessi) 0.62 ug/mlFEU (0.00-0.50) Phosphorus Level 3.1 mg/dL (2.6-4.7) Magnesium Level 2.5 mg/dL (1.8-2.4) 2.4 mg/dL (1.8-2.4) Laboratory Tests Test 01/19/21 03:15 White Blood Count 6.6 x10^3/uL (4.0-11.0) Red Blood Count 4.29 x10^6/uL (3.50-5.40) Hemoglobin 13.2 g/dL (12.0-15.5) Hematocrit 38.3 % (36.0-47.0) Mean Corpuscular Volume 89 fL (79-100) Mean Corpuscular Hemoglobin 31 pg (25-35) Mean Corpuscular Hemoglobin Concent 35 g/dL (31-37) Red Cell Distribution Width 12.3 % (11.5-14.5) Platelet Count 294 x10^3/uL (140-400) Neutrophils (%) (Auto) 82 % (31-73) Lymphocytes (%) (Auto) 11 % (24-48) Monocytes (%) (Auto) 7 % (0-9) Eosinophils (%) (Auto) 0 % (0-3) Basophils (%) (Auto) 0 % (0-3) Neutrophils # (Auto) 5.4 x10^3/uL (1.8-7.7) Lymphocytes # (Auto) 0.7 x10^3/uL (1.0-4.8) Monocytes # (Auto) 0.5 x10^3/uL (0.0-1.1) Eosinophils # (Auto) 0.0 x10^3/uL (0.0-0.7) Basophils # (Auto) 0.0 x10^3/uL (0.0-0.2) Sodium Level 139 mmol/L (136-145) Potassium Level 3.7 mmol/L (3.5-5.1) Chloride Level 101 mmol/L (98-107) Carbon Dioxide Level 28 mmol/L (21-32) Anion Gap 10 (6-14) Blood Urea Nitrogen 22 mg/dL (7-20) Creatinine 0.9 mg/dL (0.6-1.0) Estimated GFR (Cockcroft-Gault) 64.1 Glucose Level 133 mg/dL (70-99) Calcium Level 8.6 mg/dL (8.5-10.1) Magnesium Level 2.4 mg/dL (1.8-2.4) Medications Active Scripts Medications Dose Route/Sig Max Daily Dose Days Date Category No Active Prescriptions or Reported Medications Rx Impression . IMPRESSION: 1. Acute hypoxemic respiratory failure. 2. COVID-19 viral pneumonia, acute lung injury. Plan . Updated 01/19 We will continue the same Status post tocilizumab Continue remdesivir Continue steroid PLAN: 1. Continue current support with steroids. 2. The patient started on remdesivir. 3. We will add tocilizumab. 4. Lovenox. I do appreciate the privilege in sharing in patient's care. FILIPPO CALLAHAN MD Jan 19, 2021 09:31
--- NOTE | 2021-01-19 10:41 | NUR ---
SW following. Discussed with RN, pt from home, 15L NRB, regular diet. COVID-19 positive. Med Assist screened pt - pt does not meet any eligibility for medicaid at this time. SW will continue to follow.
[2021-01-19 11:00] VITALS: BP 110/57
[2021-01-19 15:00] VITALS: BP 102/58
[2021-01-19] MEDS: REMDESIVIR 100mg in NORMAL SALINE 250ML X 4 DAYS IV SCH (17:45)
[2021-01-19 19:00] VITALS: BP 108/57
[2021-01-19] MEDS: ENOXAPARIN 40 MG/0.4 ML SYRINGE. SQ SCH (20:53)
[2021-01-19 23:00] VITALS: BP 107/61
[2021-01-20] MEDS: guaiFENesin DM 200MG/20MG 10 ML SYRUP PO PRN ×3 (00:45→21:11)
[2021-01-20] MEDS: LORazepam 0.5 MG TABLET PO PRN ×3 (00:45→21:11)
[2021-01-20 02:58] VITALS: BP 115/71
[2021-01-20] MEDS: PANTOPRAZOLE 40 MG TABLET.DR. PO SCH ×2 (06:39→08:22)
[2021-01-20 07:00] VITALS: BP 108/60
[2021-01-20] MEDS: THIAMINE 100 MG TABLET. PO SCH (08:20)
[2021-01-20] MEDS: ASCORBIC ACID 1,000 MG TABLET PO SCH ×3 (08:20→21:11)
[2021-01-20] MEDS: BENZONATATE 100 MG CAPSULE. PO SCH ×3 (08:21→21:11)
[2021-01-20] MEDS: ZINC SULFATE 220 MG CAPSULE. PO SCH (08:21)
[2021-01-20] MEDS: DEXAMETHASONE SOD PHOS 4 MG/ML VIAL IVP SCH (08:21)
[2021-01-20 08:22] LABS: BASO % 0 % (0-3); EOS % 0 % (0-3); HEMATOCRIT 35.3 % (36.0-47.0); HEMOGLOBIN 12.4 g/dL (12.0-15.5); LYMPH # 0.6 x10^3/uL (1.0-4.8); LYMPH % 14 % (24-48); MEAN CORPUSCULAR HEMOGLOBIN 31 pg (25-35); MEAN CORPUSCULAR HGB CONC 35 g/dL (31-37); MEAN CORPUSCULAR VOLUME 88 fL (79-100); MONO # 0.3 x10^3/uL (0.0-1.1); MONO % 6 % (0-9); NEUT # 3.6 x10^3/uL (1.8-7.7); NEUT % 80 % (31-73); PLATELET COUNT 329 x10^3/uL (140-400); RED BLOOD COUNT 4.02 x10^6/uL (3.50-5.40); RED CELL DISTRIBUTION WIDTH 12.2 % (11.5-14.5); WHITE BLOOD COUNT 4.5 x10^3/uL (4.0-11.0)
--- NOTE | 2021-01-20 08:30 | PDOC ---
[employer] PROGRESS NOTE Date of Service DOS: DATE: 01/20/21 TIME: 08:29 Chief Complaint Chief Complaint Acute hypoxic respiratory failure COVID-19 pneumonia -status post Tocilizumab on 01/18/2021 Acute electrolyte derangementhyponatremia, hypochloremia suggestive of volume depletion Moderate protein malnutrition Admit to medicine for further management Pulmonology consult Continue IV thiamine and vitamin C IV Solu-Medrol every 8 hours IV Remdesivir if patient requires O2 supplementation beyond there baseline Pending ferritin, LDH, CRP, D-dimer labs Titrate O2 supplementation to maintain O2 saturation greater than 92% Empiric IV antibiotics if patient has clinical presentation for bacterial pneumonia Lovenox for DVT prophylaxis Protonix while on steroids GI prophylaxis ADA diet Full code Discussed with RN and SW Disposition inpatient management as above Surrogate decision maker is the Mimi Jones 31 MIN PT exam, chart review, > 50% of time spent with exam, chart review, pt care coordination. History of Present Illness History of Present Illness 60-year-old female with no significant past medical history who presents via EMS with increased shortness of breath for the past 3 days. She was diagnosed with Covid on January 08. She was seen on Tuesday in the clinic for shortness of breath and she was given an inhaler and was sent home. In route patient's O2 saturations was between 70 to 80% on room air she was placed on a 3 L nasal cannula and her O2 saturation improved to 91%. Denies fevers, nausea vomiting, diarrhea, abdominal pain, chest pain, dysuria or hematuria. 01/18: No acute events overnight. Patient saturating 92% on 5 L nasal cannula. Nurse describes patient having continued cough which sounds like whooping cough. Will obtain a Bordetella PCR mainly due to the fact that patient has been having cough for past week or so. 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 Patient's chart, labs, images were reviewed and discussed with RN 01/19: Overnight requiring 15 L/min facemask O2 maintaining saturations 89 to 91%. Still has no sense of taste and very little appetite. Status post tocilizumab x1 dose on 01/18/2021. Her cough is still strongly annoying minimally improved with cough suppressants. Able to move with O2 desaturations. Had an episode of diarrhea and some GI upset. Remdesivir day 3 of 5 today. Overnight afebrile still requiring 15 L/min facemask O2 saturations 91%. Desaturates with movement. She thinks her appetite is improved and no further diarrhea. Still very short of breath. Vitals/I&O Vitals/I&O: Vital Signs Date Time Temp Pulse Resp B/P (MAP) Pulse Ox O2 Delivery O2 Flow Rate FiO2 01/20/21 07:00 98.1 75 18 108/60 (76) 90 Nasal Cannula 15.0 98.1 I & O 01/19/21 01/19/21 01/20/21 15:00 23:00 07:00 Intake Total 200 ml 300 ml 120 ml Balance 200 ml 300 ml 120 ml Physical Exam General: Alert, Oriented X3, Cooperative Heart: Regular rate Lungs: Crackles Abdomen: Normal bowel sounds Extremities: No clubbing Skin: No rashes, No breakdown Assessment and Plan Assessmemt and Plan Problems Medical Problems: (1) COVID-19 Status: Acute (2) Shortness of breath Status: Acute Comment Review of Relevant I have reviewed the following items chandan (where applicable) has been applied. Medications: Current Medications Medications (Trade) Dose Ordered Sig/Narendra Route PRN Reason Start Time Stop Time Status Last Admin Dose Admin Guaifenesin (Robitussin Dm) 10 ml PRN Q6HRS PRN PO COUGH 01/19/21 09:15 01/20/21 08:21 Benzonatate (Tessalon Perle) 100 mg [id number] PO 01/19/21 09:30 01/20/21 08:21 Justifications for Admission Other Justification COVID-19 positive test (U07.1, COVID-19) with Acute Pneumonia (J12.89, Other viral pneumonia) (If respiratory failure or sepsis present, add as separate assessment) ARLETTE BONILLA MD Jan 20, 2021 08:30
--- NOTE | 2021-01-20 08:46 | PDOC ---
PULMONARY PROGRESS NOTES DATE: 01/20/21 TIME: 08:46 Subjective Patient currently on 10 L, at times requires 15 L She continues to be short of air Vitals Vital Signs Date Time Temp Pulse Resp B/P (MAP) Pulse Ox O2 Delivery O2 Flow Rate FiO2 01/20/21 07:00 98.1 75 18 108/60 (76) 90 Nasal Cannula 15.0 98.1 ROS: No Nausea, No Chest Pain, No Abdominal Pain, No Increase Cough Lungs: Crackles Cardiovascular: S1, S2 Abdomen: Soft Neuro Exam: Alert Extremities: No Edema Skin: Warm Labs Laboratory Tests Test 01/19/21 03:15 01/20/21 08:05 White Blood Count 6.6 x10^3/uL (4.0-11.0) 4.5 x10^3/uL (4.0-11.0) Red Blood Count 4.29 x10^6/uL (3.50-5.40) 4.02 x10^6/uL (3.50-5.40) Hemoglobin 13.2 g/dL (12.0-15.5) 12.4 g/dL (12.0-15.5) Hematocrit 38.3 % (36.0-47.0) 35.3 % (36.0-47.0) Mean Corpuscular Volume 89 fL (79-100) 88 fL (79-100) Mean Corpuscular Hemoglobin 31 pg (25-35) 31 pg (25-35) Mean Corpuscular Hemoglobin Concent 35 g/dL (31-37) 35 g/dL (31-37) Red Cell Distribution Width 12.3 % (11.5-14.5) 12.2 % (11.5-14.5) Platelet Count 294 x10^3/uL (140-400) 329 x10^3/uL (140-400) Neutrophils (%) (Auto) 82 % (31-73) 80 % (31-73) Lymphocytes (%) (Auto) 11 % (24-48) 14 % (24-48) Monocytes (%) (Auto) 7 % (0-9) 6 % (0-9) Eosinophils (%) (Auto) 0 % (0-3) 0 % (0-3) Basophils (%) (Auto) 0 % (0-3) 0 % (0-3) Neutrophils # (Auto) 5.4 x10^3/uL (1.8-7.7) 3.6 x10^3/uL (1.8-7.7) Lymphocytes # (Auto) 0.7 x10^3/uL (1.0-4.8) 0.6 x10^3/uL (1.0-4.8) Monocytes # (Auto) 0.5 x10^3/uL (0.0-1.1) 0.3 x10^3/uL (0.0-1.1) Eosinophils # (Auto) 0.0 x10^3/uL (0.0-0.7) 0.0 x10^3/uL (0.0-0.7) Basophils # (Auto) 0.0 x10^3/uL (0.0-0.2) 0.0 x10^3/uL (0.0-0.2) Sodium Level 139 mmol/L (136-145) Potassium Level 3.7 mmol/L (3.5-5.1) Chloride Level 101 mmol/L (98-107) Carbon Dioxide Level 28 mmol/L (21-32) Anion Gap 10 (6-14) Blood Urea Nitrogen 22 mg/dL (7-20) Creatinine 0.9 mg/dL (0.6-1.0) Estimated GFR (Cockcroft-Gault) 64.1 Glucose Level 133 mg/dL (70-99) Calcium Level 8.6 mg/dL (8.5-10.1) Magnesium Level 2.4 mg/dL (1.8-2.4) Laboratory Tests Test 01/20/21 08:05 White Blood Count 4.5 x10^3/uL (4.0-11.0) Red Blood Count 4.02 x10^6/uL (3.50-5.40) Hemoglobin 12.4 g/dL (12.0-15.5) Hematocrit 35.3 % (36.0-47.0) Mean Corpuscular Volume 88 fL (79-100) Mean Corpuscular Hemoglobin 31 pg (25-35) Mean Corpuscular Hemoglobin Concent 35 g/dL (31-37) Red Cell Distribution Width 12.2 % (11.5-14.5) Platelet Count 329 x10^3/uL (140-400) Neutrophils (%) (Auto) 80 % (31-73) Lymphocytes (%) (Auto) 14 % (24-48) Monocytes (%) (Auto) 6 % (0-9) Eosinophils (%) (Auto) 0 % (0-3) Basophils (%) (Auto) 0 % (0-3) Neutrophils # (Auto) 3.6 x10^3/uL (1.8-7.7) Lymphocytes # (Auto) 0.6 x10^3/uL (1.0-4.8) Monocytes # (Auto) 0.3 x10^3/uL (0.0-1.1) Eosinophils # (Auto) 0.0 x10^3/uL (0.0-0.7) Basophils # (Auto) 0.0 x10^3/uL (0.0-0.2) Medications Active Scripts Medications Dose Route/Sig Max Daily Dose Days Date Category No Active Prescriptions or Reported Medications Rx Impression . IMPRESSION: 1. Acute hypoxemic respiratory failure. 2. COVID-19 viral pneumonia, acute lung injury. Status post remdesivir, tocilizumab Plan . Dated 01/20 Continue current support Oxygen supplementation Steroids updated 01/19 We will continue the same Status post tocilizumab Continue remdesivir Continue steroid PLAN: 1. Continue current support with steroids. 2. The patient started on remdesivir. 3. We will add tocilizumab. 4. Lovenox. I do appreciate the privilege in sharing in patient's care. FILIPPO CALLAHAN MD Jan 20, 2021 08:46
[2021-01-20 09:13] LABS: CALCIUM 8.3 mg/dL (8.5-10.1); CREATININE 0.8 mg/dL (0.6-1.0); GFR 73.4; MAGNESIUM 2.5 mg/dL (1.8-2.4); POTASSIUM 3.6 mmol/L (3.5-5.1)
[2021-01-20 11:00] VITALS: BP 107/58
[2021-01-20 15:00] VITALS: BP 115/64
[2021-01-20] MEDS: REMDESIVIR 100mg in NORMAL SALINE 250ML X 4 DAYS IV SCH (17:32)
[2021-01-20 19:00] VITALS: BP 101/57
[2021-01-20] MEDS: ENOXAPARIN 40 MG/0.4 ML SYRINGE. SQ SCH (21:11)
[2021-01-20 23:00] VITALS: BP 113/66
[2021-01-21 03:00] VITALS: BP 115/63
--- NOTE | 2021-01-21 06:42 | PDOC ---
[facility] PROGRESS NOTE Date of Service DOS: DATE: 01/21/21 TIME: 06:42 Chief Complaint Chief Complaint Acute hypoxic respiratory failure COVID-19 pneumonia -status post Tocilizumab on 01/18/2021 Acute electrolyte derangementhyponatremia, hypochloremia suggestive of volume depletion Moderate protein malnutrition Admit to medicine for further management Pulmonology consult Continue IV thiamine and vitamin C IV Solu-Medrol every 8 hours IV Remdesivir if patient requires O2 supplementation beyond there baseline Pending ferritin, LDH, CRP, D-dimer labs Titrate O2 supplementation to maintain O2 saturation greater than 92% Empiric IV antibiotics if patient has clinical presentation for bacterial pneumonia Lovenox for DVT prophylaxis Protonix while on steroids GI prophylaxis ADA diet Full code Discussed with RN and SW Disposition inpatient management as above Surrogate decision maker is the Mimi Jones 31 MIN PT exam, chart review, > 50% of time spent with exam, chart review, pt care coordination. History of Present Illness History of Present Illness 60-year-old female with no significant past medical history who presents via EMS with increased shortness of breath for the past 3 days. She was diagnosed with Covid on January 08. She was seen on Tuesday in the clinic for shortness of breath and she was given an inhaler and was sent home. In route patient's O2 saturations was between 70 to 80% on room air she was placed on a 3 L nasal cannula and her O2 saturation improved to 91%. Denies fevers, nausea vomiting, diarrhea, abdominal pain, chest pain, dysuria or hematuria. 01/18: No acute events overnight. Patient saturating 92% on 5 L nasal cannula. Nurse describes patient having continued cough which sounds like whooping cough. Will obtain a Bordetella PCR mainly due to the fact that patient has been having cough for past week or so. 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 Patient's chart, labs, images were reviewed and discussed with RN 01/19: Overnight requiring 15 L/min facemask O2 maintaining saturations 89 to 91%. Still has no sense of taste and very little appetite. Status post tocilizumab x1 dose on 01/18/2021. Her cough is still strongly annoying minimally improved with cough suppressants. Able to move with O2 desaturations. Had an episode of diarrhea and some GI upset. Remdesivir day 3 of 5 today. 01/20: Overnight afebrile still requiring 15 L/min facemask O2 saturations 91%. Desaturates with movement. She thinks her appetite is improved and no further diarrhea. Still very short of breath. Overnight afebrile. Requires 2 L/min nasal cannula with O2 saturations 91% intermittently requiring 15 L/min with movement. Feels about the same very weak still with cough. Having some muscle spasms. Blood pressure low today. Remdesivir day today Vitals/I&O Vitals/I&O: Vital Signs Date Time Temp Pulse Resp B/P (MAP) Pulse Ox O2 Delivery O2 Flow Rate FiO2 01/21/21 03:00 98.4 68 20 115/63 (80) 94 Nasal Cannula 98.4 01/20/21 20:00 10.0 I & O 01/20/21 01/20/21 01/21/21 15:00 23:00 07:00 Intake Total 480 ml 200 ml Balance 480 ml 200 ml Physical Exam General: Alert, Oriented X3, Cooperative Heart: Regular rate Lungs: Crackles Abdomen: Normal bowel sounds Extremities: No clubbing Skin: No rashes, No breakdown Labs Labs: Laboratory Tests Test 01/20/21 08:05 White Blood Count 4.5 x10^3/uL (4.0-11.0) Red Blood Count 4.02 x10^6/uL (3.50-5.40) Hemoglobin 12.4 g/dL (12.0-15.5) Hematocrit 35.3 % (36.0-47.0) Mean Corpuscular Volume 88 fL (79-100) Mean Corpuscular Hemoglobin 31 pg (25-35) Mean Corpuscular Hemoglobin Concent 35 g/dL (31-37) Red Cell Distribution Width 12.2 % (11.5-14.5) Platelet Count 329 x10^3/uL (140-400) Neutrophils (%) (Auto) 80 % (31-73) Lymphocytes (%) (Auto) 14 % (24-48) Monocytes (%) (Auto) 6 % (0-9) Eosinophils (%) (Auto) 0 % (0-3) Basophils (%) (Auto) 0 % (0-3) Neutrophils # (Auto) 3.6 x10^3/uL (1.8-7.7) Lymphocytes # (Auto) 0.6 x10^3/uL (1.0-4.8) Monocytes # (Auto) 0.3 x10^3/uL (0.0-1.1) Eosinophils # (Auto) 0.0 x10^3/uL (0.0-0.7) Basophils # (Auto) 0.0 x10^3/uL (0.0-0.2) Sodium Level 141 mmol/L (136-145) Potassium Level 3.6 mmol/L (3.5-5.1) Chloride Level 105 mmol/L (98-107) Carbon Dioxide Level 26 mmol/L (21-32) Anion Gap 10 (6-14) Blood Urea Nitrogen 19 mg/dL (7-20) Creatinine 0.8 mg/dL (0.6-1.0) Estimated GFR (Cockcroft-Gault) 73.4 Glucose Level 103 mg/dL (70-99) Calcium Level 8.3 mg/dL (8.5-10.1) Magnesium Level 2.5 mg/dL (1.8-2.4) Assessment and Plan Assessmemt and Plan Problems Medical Problems: (1) COVID-19 Status: Acute (2) Shortness of breath Status: Acute Comment Review of Relevant I have reviewed the following items chandan (where applicable) has been applied. Justifications for Admission Other Justification COVID-19 positive test (U07.1, COVID-19) with Acute Pneumonia (J12.89, Other viral pneumonia) (If respiratory failure or sepsis present, add as separate assessment) ARLETTE BONILLA MD Jan 21, 2021 06:42
[2021-01-21 07:00] VITALS: BP 108/62
--- NOTE | 2021-01-21 08:27 | PDOC ---
PULMONARY PROGRESS NOTES DATE: 01/21/21 TIME: 08:27 Subjective Patient feels about the same patient currently on 10 L, at times requires 15 L She continues to be short of air Vitals Vital Signs Date Time Temp Pulse Resp B/P (MAP) Pulse Ox O2 Delivery O2 Flow Rate FiO2 01/21/21 07:00 97.8 82 18 108/62 (77) 92 Nasal Cannula 10.0 97.8 ROS: No Nausea, No Chest Pain, No Abdominal Pain, No Increase Cough Lungs: Crackles Cardiovascular: S1, S2 Abdomen: Soft Neuro Exam: Alert Extremities: No Edema Skin: Warm Labs Laboratory Tests Test 01/20/21 08:05 White Blood Count 4.5 x10^3/uL (4.0-11.0) Red Blood Count 4.02 x10^6/uL (3.50-5.40) Hemoglobin 12.4 g/dL (12.0-15.5) Hematocrit 35.3 % (36.0-47.0) Mean Corpuscular Volume 88 fL (79-100) Mean Corpuscular Hemoglobin 31 pg (25-35) Mean Corpuscular Hemoglobin Concent 35 g/dL (31-37) Red Cell Distribution Width 12.2 % (11.5-14.5) Platelet Count 329 x10^3/uL (140-400) Neutrophils (%) (Auto) 80 % (31-73) Lymphocytes (%) (Auto) 14 % (24-48) Monocytes (%) (Auto) 6 % (0-9) Eosinophils (%) (Auto) 0 % (0-3) Basophils (%) (Auto) 0 % (0-3) Neutrophils # (Auto) 3.6 x10^3/uL (1.8-7.7) Lymphocytes # (Auto) 0.6 x10^3/uL (1.0-4.8) Monocytes # (Auto) 0.3 x10^3/uL (0.0-1.1) Eosinophils # (Auto) 0.0 x10^3/uL (0.0-0.7) Basophils # (Auto) 0.0 x10^3/uL (0.0-0.2) Sodium Level 141 mmol/L (136-145) Potassium Level 3.6 mmol/L (3.5-5.1) Chloride Level 105 mmol/L (98-107) Carbon Dioxide Level 26 mmol/L (21-32) Anion Gap 10 (6-14) Blood Urea Nitrogen 19 mg/dL (7-20) Creatinine 0.8 mg/dL (0.6-1.0) Estimated GFR (Cockcroft-Gault) 73.4 Glucose Level 103 mg/dL (70-99) Calcium Level 8.3 mg/dL (8.5-10.1) Magnesium Level 2.5 mg/dL (1.8-2.4) Medications Active Scripts Medications Dose Route/Sig Max Daily Dose Days Date Category No Active Prescriptions or Reported Medications Rx Impression . IMPRESSION: 1. Acute hypoxemic respiratory failure. 2. COVID-19 viral pneumonia, acute lung injury. Status post remdesivir, tocilizumab Plan . Updated 01/21 Continue oxygen supplementation Steroids Up to chair Dated 01/20 Continue current support Oxygen supplementation Steroids updated 01/19 We will continue the same Status post tocilizumab Continue remdesivir Continue steroid FILIPPO CALLAHAN MD Jan 21, 2021 08:27
[2021-01-21] MEDS: ASCORBIC ACID 1,000 MG TABLET PO SCH ×3 (09:46→22:41)
[2021-01-21] MEDS: THIAMINE 100 MG TABLET. PO SCH (09:46)
[2021-01-21] MEDS: ZINC SULFATE 220 MG CAPSULE. PO SCH (09:46)
[2021-01-21] MEDS: DEXAMETHASONE SOD PHOS 4 MG/ML VIAL IVP SCH (09:47)
[2021-01-21] MEDS: BENZONATATE 100 MG CAPSULE. PO SCH ×3 (09:47→22:41)
[2021-01-21 11:00] VITALS: BP 87/54
[2021-01-21 15:00] VITALS: BP 98/59
[2021-01-21] MEDS: REMDESIVIR 100mg in NORMAL SALINE 250ML X 4 DAYS IV SCH (17:40)
[2021-01-21 19:00] VITALS: BP 105/63
[2021-01-21] MEDS: ENOXAPARIN 40 MG/0.4 ML SYRINGE. SQ SCH (22:42)
[2021-01-21 23:27] VITALS: BP 101/62
[2021-01-22 03:26] VITALS: BP 105/64
[2021-01-22 07:00] VITALS: BP 92/50
--- NOTE | 2021-01-22 08:43 | PDOC ---
[facility] PROGRESS NOTE Date of Service DOS: DATE: 01/22/21 TIME: 08:43 Chief Complaint Chief Complaint Acute hypoxic respiratory failure COVID-19 pneumonia -status post Tocilizumab on 01/18/2021 Acute electrolyte derangementhyponatremia, hypochloremia suggestive of volume depletion Moderate protein malnutrition Admit to medicine for further management Pulmonology consult Continue IV thiamine and vitamin C IV Solu-Medrol every 8 hours IV Remdesivir if patient requires O2 supplementation beyond there baseline Pending ferritin, LDH, CRP, D-dimer labs Titrate O2 supplementation to maintain O2 saturation greater than 92% Empiric IV antibiotics if patient has clinical presentation for bacterial pneumonia Lovenox for DVT prophylaxis Protonix while on steroids GI prophylaxis ADA diet Full code Discussed with RN and SW Disposition inpatient management as above Surrogate decision maker is the Mimi Jones 31 MIN PT exam, chart review, > 50% of time spent with exam, chart review, pt care coordination. History of Present Illness History of Present Illness 60-year-old female with no significant past medical history who presents via EMS with increased shortness of breath for the past 3 days. She was diagnosed with Covid on January 08. She was seen on Tuesday in the clinic for shortness of breath and she was given an inhaler and was sent home. In route patient's O2 saturations was between 70 to 80% on room air she was placed on a 3 L nasal cannula and her O2 saturation improved to 91%. Denies fevers, nausea vomiting, diarrhea, abdominal pain, chest pain, dysuria or hematuria. 01/18: No acute events overnight. Patient saturating 92% on 5 L nasal cannula. Nurse describes patient having continued cough which sounds like whooping cough. Will obtain a Bordetella PCR mainly due to the fact that patient has been having cough for past week or so. 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 Patient's chart, labs, images were reviewed and discussed with RN 01/19: Overnight requiring 15 L/min facemask O2 maintaining saturations 89 to 91%. Still has no sense of taste and very little appetite. Status post tocilizumab x1 dose on 01/18/2021. Her cough is still strongly annoying minimally improved with cough suppressants. Able to move with O2 desaturations. Had an episode of diarrhea and some GI upset. Remdesivir day 3 of today. 01/20: Overnight afebrile still requiring 15 L/min facemask O2 saturations 91%. Desaturates with movement. She thinks her appetite is improved and no further diarrhea. Still very short of breath. 01/21: Overnight afebrile. Requires 10 L/min nasal cannula with O2 saturations 91% intermittently requiring 15 L/min with movement. Feels about the same very weak still with cough. Having some muscle spasms. Blood pressure low today. Remdesivir day today Overnight afebrile. Still requires 10 L/min nasal cannula at rest with saturations 91 to 93%. With movement even up to the bedside commode has significant desaturations requiring supplemental facemask 15 L/min to maintain saturations over 89%. Overall she feels very weak but is in good spirits has good appetite no further diarrhea. Still with cough minimally productive. Vitals/I&O Vitals/I&O: Vital Signs Date Time Temp Pulse Resp B/P (MAP) Pulse Ox O2 Delivery O2 Flow Rate FiO2 01/22/21 07:00 97.7 82 20 92/50 (64) 95 Nasal Cannula 10.0 97.7 I & O 01/21/21 01/21/21 01/22/21 15:00 23:00 07:00 Intake Total 240 ml 470 ml 0 ml Balance 240 ml 470 ml 0 ml Physical Exam General: Alert, Oriented X3, Cooperative Heart: Regular rate Lungs: Crackles Abdomen: Normal bowel sounds Extremities: No clubbing Skin: No rashes, No breakdown Assessment and Plan Assessmemt and Plan Problems Medical Problems: (1) COVID-19 Status: Acute (2) Shortness of breath Status: Acute Comment Review of Relevant I have reviewed the following items chandan (where applicable) has been applied. Justifications for Admission Other Justification COVID-19 positive test (U07.1, COVID-19) with Acute Pneumonia (J12.89, Other viral pneumonia) (If respiratory failure or sepsis present, add as separate assessment) ARLETTE BONILLA MD Jan 22, 2021 08:43
--- NOTE | 2021-01-22 09:08 | PDOC ---
PULMONARY PROGRESS NOTES DATE: 01/22/21 TIME: 09:07 Subjective Patient feels about the same patient currently on 10 L, at times requires 15 L She continues to be short of air Vitals Vital Signs Date Time Temp Pulse Resp B/P (MAP) Pulse Ox O2 Delivery O2 Flow Rate FiO2 01/22/21 07:00 97.7 82 20 92/50 (64) 95 Nasal Cannula 10.0 97.7 ROS: No Nausea, No Chest Pain, No Abdominal Pain, No Increase Cough Lungs: Crackles Cardiovascular: S1, S2 Abdomen: Soft Neuro Exam: Alert Extremities: No Edema Skin: Warm Medications Active Scripts Medications Dose Route/Sig Max Daily Dose Days Date Category No Active Prescriptions or Reported Medications Rx Impression . IMPRESSION: 1. Acute hypoxemic respiratory failure. 2. COVID-19 viral pneumonia, acute lung injury. Status post remdesivir, tocilizumab Plan . Updated 01/22 No new events Improving Getting closer to discharge updated 01/21 Continue oxygen supplementation Steroids Up to chair Dated 01/20 Continue current support Oxygen supplementation Steroids FILIPPO CALLAHAN MD Jan 22, 2021 09:08
[2021-01-22 09:20] LABS: ALBUMIN 2.6 g/dL (3.4-5.0); ALBUMIN/GLOBULIN RATIO 0.7 (1.0-1.7); CALCIUM 8.3 mg/dL (8.5-10.1); CREATININE 0.7 mg/dL (0.6-1.0); GFR 85.6; POTASSIUM 3.7 mmol/L (3.5-5.1); TOTAL BILIRUBIN 0.4 mg/dL (0.2-1.0); TOTAL PROTEIN 6.3 g/dL (6.4-8.2)
[2021-01-22] MEDS: ZINC SULFATE 220 MG CAPSULE. PO SCH (10:25)
[2021-01-22] MEDS: BENZONATATE 100 MG CAPSULE. PO SCH ×3 (10:25→22:29)
[2021-01-22] MEDS: ASCORBIC ACID 1,000 MG TABLET PO SCH ×3 (10:25→22:29)
[2021-01-22] MEDS: THIAMINE 100 MG TABLET. PO SCH (10:25)
[2021-01-22] MEDS: DEXAMETHASONE SOD PHOS 4 MG/ML VIAL IVP SCH (10:26)
[2021-01-22] MEDS: PANTOPRAZOLE 40 MG TABLET.DR. PO SCH (10:26)
[2021-01-22 11:02] VITALS: BP 97/53
[2021-01-22 11:17] LABS: B PARAPERTUSSIS PCR Negative (Negative); B PERTUS PCR Negative (Negative)
[2021-01-22 15:00] VITALS: BP 102/59
[2021-01-22 19:00] VITALS: BP 107/53
[2021-01-22] MEDS: ENOXAPARIN 40 MG/0.4 ML SYRINGE. SQ SCH (22:29)
[2021-01-22 23:07] VITALS: BP 100/52
[2021-01-23 03:20] VITALS: BP 108/63
[2021-01-23 07:00] VITALS: BP 93/55
--- NOTE | 2021-01-23 07:05 | PDOC ---
[facility] PROGRESS NOTE Date of Service DOS: DATE: 01/23/21 TIME: 07:05 Chief Complaint Chief Complaint Acute hypoxic respiratory failure COVID-19 pneumonia -status post Tocilizumab on 01/18/2021 Acute electrolyte derangementhyponatremia, hypochloremia suggestive of volume depletion Moderate protein malnutrition Admit to medicine for further management Pulmonology consult Continue IV thiamine and vitamin C IV Solu-Medrol every 8 hours IV Remdesivir if patient requires O2 supplementation beyond there baseline Pending ferritin, LDH, CRP, D-dimer labs Titrate O2 supplementation to maintain O2 saturation greater than 92% Empiric IV antibiotics if patient has clinical presentation for bacterial pneumonia Lovenox for DVT prophylaxis Protonix while on steroids GI prophylaxis ADA diet Full code Discussed with RN and SW Disposition inpatient management as above Surrogate decision maker is the Mimi Jones 31 MIN PT exam, chart review, > 50% of time spent with exam, chart review, pt care coordination. History of Present Illness History of Present Illness 60-year-old female with no significant past medical history who presents via EMS with increased shortness of breath for the past 3 days. She was diagnosed with Covid on January 08. She was seen on Tuesday in the clinic for shortness of breath and she was given an inhaler and was sent home. In route patient's O2 saturations was between 70 to 80% on room air she was placed on a 3 L nasal cannula and her O2 saturation improved to 91%. Denies fevers, nausea vomiting, diarrhea, abdominal pain, chest pain, dysuria or hematuria. 01/18: No acute events overnight. Patient saturating 92% on 5 L nasal cannula. Nurse describes patient having continued cough which sounds like whooping cough. Will obtain a Bordetella PCR mainly due to the fact that patient has been having cough for past week or so. 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 Patient's chart, labs, images were reviewed and discussed with RN 01/19: Overnight requiring 15 L/min facemask O2 maintaining saturations 89 to 91%. Still has no sense of taste and very little appetite. Status post tocilizumab x1 dose on 01/18/2021. Her cough is still strongly annoying minimally improved with cough suppressants. Able to move with O2 desaturations. Had an episode of diarrhea and some GI upset. Remdesivir day today. 01/20: Overnight afebrile still requiring 15 L/min facemask O2 saturations 91%. Desaturates with movement. She thinks her appetite is improved and no further diarrhea. Still very short of breath. 01/21: Overnight afebrile. Requires 10 L/min nasal cannula with O2 saturations 91% intermittently requiring 15 L/min with movement. Feels about the same very weak still with cough. Having some muscle spasms. Blood pressure low today. Remdesivir day today 01/22: Overnight afebrile. Still requires 10 L/min nasal cannula at rest with saturations 91 to 93%. With movement even up to the bedside commode has significant desaturations requiring supplemental facemask 15 L/min to maintain saturations over 89%. Overall she feels very weak but is in good spirits has good appetite no further diarrhea. Still with cough minimally productive. Afebrile overnight. Down to 6 L/min nasal cannula saturations 94%. She was able to get up on her own to the commode today with no significant desaturations. Still weak but has a good appetite no diarrhea minimal cough. She would like to attempt a 6-minute walk today and attempt to go home. Vitals/I&O Vitals/I&O: Vital Signs Date Time Temp Pulse Resp B/P (MAP) Pulse Ox O2 Delivery O2 Flow Rate FiO2 01/23/21 03:20 98.6 62 18 108/63 (78) 96 Nasal Cannula 10.0 98.6 I & O 01/22/21 01/22/21 01/23/21 14:59 22:59 06:59 Intake Total 240 ml 200 ml Balance 240 ml 200 ml Physical Exam General: Alert, Oriented X3, Cooperative Heart: Regular rate Lungs: Crackles Abdomen: Normal bowel sounds Extremities: No clubbing Skin: No rashes, No breakdown Labs Labs: Laboratory Tests Test 01/22/21 08:10 Sodium Level 139 mmol/L (136-145) Potassium Level 3.7 mmol/L (3.5-5.1) Chloride Level 106 mmol/L (98-107) Carbon Dioxide Level 26 mmol/L (21-32) Anion Gap 7 (6-14) Blood Urea Nitrogen 16 mg/dL (7-20) Creatinine 0.7 mg/dL (0.6-1.0) Estimated GFR (Cockcroft-Gault) 85.6 BUN/Creatinine Ratio 23 (6-20) Glucose Level 94 mg/dL (70-99) Calcium Level 8.3 mg/dL (8.5-10.1) Total Bilirubin 0.4 mg/dL (0.2-1.0) Aspartate Amino Transf (AST/SGOT) 31 U/L (15-37) Alanine Aminotransferase (ALT/SGPT) 48 U/L (14-59) Alkaline Phosphatase 37 U/L (46-116) Total Protein 6.3 g/dL (6.4-8.2) Albumin 2.6 g/dL (3.4-5.0) Albumin/Globulin Ratio 0.7 (1.0-1.7) Assessment and Plan Assessmemt and Plan Problems Medical Problems: (1) COVID-19 Status: Acute (2) Shortness of breath Status: Acute Comment Review of Relevant I have reviewed the following items chandan (where applicable) has been applied. Justifications for Admission Other Justification COVID-19 positive test (U07.1, COVID-19) with Acute Pneumonia (J12.89, Other viral pneumonia) (If respiratory failure or sepsis present, add as separate assessment) ARLETTE BONILLA MD Jan 23, 2021 07:05
[2021-01-23] MEDS: BENZONATATE 100 MG CAPSULE. PO SCH ×2 (08:47→14:10)
[2021-01-23] MEDS: PANTOPRAZOLE 40 MG TABLET.DR. PO SCH (08:47)
[2021-01-23] MEDS: ASCORBIC ACID 1,000 MG TABLET PO SCH ×2 (08:47→14:10)
[2021-01-23] MEDS: ZINC SULFATE 220 MG CAPSULE. PO SCH (08:47)
[2021-01-23] MEDS: THIAMINE 100 MG TABLET. PO SCH (08:47)
[2021-01-23] MEDS: DEXAMETHASONE SOD PHOS 4 MG/ML VIAL IVP SCH (08:48)
--- NOTE | 2021-01-23 08:55 | PDOC ---
PULMONARY PROGRESS NOTES DATE: 01/23/21 TIME: 08:55 Subjective Patient requiring less oxygen Not more short of air, no chest pain no pressure Vitals Vital Signs Date Time Temp Pulse Resp B/P (MAP) Pulse Ox O2 Delivery O2 Flow Rate FiO2 01/23/21 07:00 98.1 71 18 93/55 (68) 91 Nasal Cannula 6.0 98.1 ROS: No Nausea, No Chest Pain, No Abdominal Pain, No Increase Cough Lungs: Crackles Cardiovascular: S1, S2 Abdomen: Soft Neuro Exam: Alert Extremities: No Edema Skin: Warm Labs Laboratory Tests Test 01/22/21 08:10 Sodium Level 139 mmol/L (136-145) Potassium Level 3.7 mmol/L (3.5-5.1) Chloride Level 106 mmol/L (98-107) Carbon Dioxide Level 26 mmol/L (21-32) Anion Gap 7 (6-14) Blood Urea Nitrogen 16 mg/dL (7-20) Creatinine 0.7 mg/dL (0.6-1.0) Estimated GFR (Cockcroft-Gault) 85.6 BUN/Creatinine Ratio 23 (6-20) Glucose Level 94 mg/dL (70-99) Calcium Level 8.3 mg/dL (8.5-10.1) Total Bilirubin 0.4 mg/dL (0.2-1.0) Aspartate Amino Transf (AST/SGOT) 31 U/L (15-37) Alanine Aminotransferase (ALT/SGPT) 48 U/L (14-59) Alkaline Phosphatase 37 U/L (46-116) Total Protein 6.3 g/dL (6.4-8.2) Albumin 2.6 g/dL (3.4-5.0) Albumin/Globulin Ratio 0.7 (1.0-1.7) Medications Active Scripts Medications Dose Route/Sig Max Daily Dose Days Date Category No Active Prescriptions or Reported Medications Rx Impression . IMPRESSION: 1. Acute hypoxemic respiratory failure. 2. COVID-19 viral pneumonia, acute lung injury. Status post remdesivir, tocilizumab Plan . Updated 01/23 Discussed with RN 6-minute walk Possible discharge today Patient to follow-up with me in March updated 01/22 No new events Improving Getting closer to discharge updated 01/21 Continue oxygen supplementation Steroids Up to chair Dated 01/20 Continue current support Oxygen supplementation Steroids FILIPPO CALLAHAN MD Jan 23, 2021 08:55
[2021-01-23 11:00] VITALS: BP 93/54
--- NOTE | 2021-01-23 13:06 | NUR ---
[facility] following. Discussed with RN, possible discharge today, awaiting 6 minute walk to determine home oxygen needs. COVID-19 positive. [facility] will continue to follow. Addendum: 01/23/21 at 1403 by BRIANNA SLADE 6 minute walk completed. Pt requiring 3L with rest and 6L with exertion. [facility] faxed order to [employer] as tanks in office for pt discharge. Awaiting approval to give oxygen tank. Addendum: 01/23/21 at 1509 by BRIANNA SLADE Ok to provide tank. Discharge order for home with self care. RN advised no further SW needs.
[2021-01-23] MEDS ORDERED: GUAI5SYR PO (13:56)
[2021-01-23] MEDS ORDERED: ASCO100019 PO (13:56)
[2021-01-23] MEDS ORDERED: THIA100T22 PO (13:56)
[2021-01-23] MEDS ORDERED: PANT40TA77 PO (13:56)
[2021-01-23] MEDS ORDERED: DEXA6TAB6 PO (13:56)
[2021-01-23] MEDS ORDERED: ZINC220C5 PO (13:56)
--- NOTE | 2021-01-23 14:01 | PDOC3 ---
Discharge Summary Visit Information Date of Admission: Jan 17, 2021 Date of Discharge: Jan 23, 2021 Admitting Diagnosis: COVID 19 with hypoxic respiratory failure Final Diagnosis Problems Medical Problems: (1) COVID-19 Status: Acute (2) Shortness of breath Status: Acute Brief Hospital Course Allergies Allergies Coded Allergies Type Severity Reaction Last Updated Verified amoxicillin Allergy Intermediate 01/17/21 Yes Vital Signs Vital Signs Date Time Temp Pulse Resp B/P (MAP) Pulse Ox O2 Delivery O2 Flow Rate FiO2 01/23/21 11:00 97.0 76 20 93/54 (67) 93 Nasal Cannula 6.0 97.0 Lab Results Laboratory Tests Test 01/22/21 08:10 Sodium Level 139 mmol/L (136-145) Potassium Level 3.7 mmol/L (3.5-5.1) Chloride Level 106 mmol/L (98-107) Carbon Dioxide Level 26 mmol/L (21-32) Anion Gap 7 (6-14) Blood Urea Nitrogen 16 mg/dL (7-20) Creatinine 0.7 mg/dL (0.6-1.0) Estimated GFR (Cockcroft-Gault) 85.6 BUN/Creatinine Ratio 23 (6-20) Glucose Level 94 mg/dL (70-99) Calcium Level 8.3 mg/dL (8.5-10.1) Total Bilirubin 0.4 mg/dL (0.2-1.0) Aspartate Amino Transf (AST/SGOT) 31 U/L (15-37) Alanine Aminotransferase (ALT/SGPT) 48 U/L (14-59) Alkaline Phosphatase 37 U/L (46-116) Total Protein 6.3 g/dL (6.4-8.2) Albumin 2.6 g/dL (3.4-5.0) Albumin/Globulin Ratio 0.7 (1.0-1.7) Brief Hospital Course Ms Silverman is a 60-year-old female with no significant past medical history who presents via EMS with increased shortness of breath for the past 3 days prior to presentation. She was diagnosed with Covid on January 08. She was seen on Tuesday in the clinic for shortness of breath and she was given an inhaler and was sent home. In route patient's O2 saturations was between 70 to 80% on room air she was placed on a 3 L nasal cannula and her O2 saturation improved to 91%. Denies fevers, nausea vomiting, diarrhea, abdominal pain, chest pain, dysuria or hematuria. 01/18: No acute events overnight. Patient saturating 92% on 5 L nasal cannula. Nurse describes patient having continued cough which sounds like whooping cough. Will obtain a Bordetella PCR mainly due to the fact that patient has been having cough for past week or so. 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 Patient's chart, labs, images were reviewed and discussed with RN 01/19: Overnight requiring 15 L/min facemask O2 maintaining saturations 89 to 91%. Still has no sense of taste and very little appetite. Status post tocilizumab x1 dose on 01/18/2021. Her cough is still strongly annoying minimally improved with cough suppressants. Able to move with O2 desaturations. Had an episode of diarrhea and some GI upset. Remdesivir day today. 01/20: Overnight afebrile still requiring 15 L/min facemask O2 saturations 91%. Desaturates with movement. She thinks her appetite is improved and no further diarrhea. Still very short of breath. 01/21: Overnight afebrile. Requires 10 L/min nasal cannula with O2 saturations 91% intermittently requiring 15 L/min with movement. Feels about the same very weak still with cough. Having some muscle spasms. Blood pressure low today. Remdesivir day today 01/22: Overnight afebrile. Still requires 10 L/min nasal cannula at rest with saturations 91 to 93%. With movement even up to the bedside commode has significant desaturations requiring supplemental facemask 15 L/min to maintain saturations over 89%. Overall she feels very weak but is in good spirits has good appetite no further diarrhea. Still with cough minimally productive. Afebrile overnight. Down to 6 L/min nasal cannula saturations 94%. She was able to get up on her own to the commode today with no significant desaturations. Still weak but has a good appetite no diarrhea minimal cough. 6-minute walk today revealed needs for 3 L/min O2 at rest and 6 L/min O2 with exertion and will go home. Follow-up with pulmonology in 2 months Problem list: Acute hypoxic respiratory failure COVID-19 pneumonia -status post Tocilizumab on 01/18/2021 and remdesivir x 5 doses. Home on 7 additional days of Decadron and Protonix for GI prophylaxis and will wean O2 as tolerated she has a home pulse oximetry check Acute electrolyte derangementhyponatremia, hypochloremia suggestive of volume depletion Moderate protein malnutrition Pulmonology consult Greater than 30 minutes spent on d/c home with self care. Discharge Information Condition at Discharge: Improved Follow Up: Weeks (2) Disposition/Orders: D/C to Home Scheduled Ascorbic Acid (Vitamin C) 1,000 Mg Tablet, 1,000 MG PO DAILY for COVID 19 for 30 Days, #30 Prescribed by: ARLETTE BONILLA MD on 01/23/21 1356 Dexamethasone (Decadron) 6 Mg Tablet, 6 MG PO DAILY for COVID 19 for 7 Days, #7 Prescribed by: ARLETTE BONILLA MD on 01/23/21 1356 Pantoprazole Sodium (Pantoprazole Sodium ) 40 Mg Tablet.dr, 40 MG PO DAILYAC for Gastrititis/COVID for 30 Days, #30 Ref 0 Prescribed by: ARLETTE BONILLA MD on 01/23/21 1356 Thiamine Mononitrate (Vitamin B-1) 100 Mg Tablet, 100 MG PO DAILY for COVID 19 for 30 Days, #30 Prescribed by: ARLETTE BONILLA MD on 01/23/21 1356 Zinc Sulfate (Zinc Sulfate) 50 Mg Capsule, 50 MG PO DAILY for COVID 19 for 30 Days, #30 Prescribed by: ARLETTE BONILLA MD on 01/23/21 1356 Scheduled PRN Guaifenesin/Dextromethorphan (Guaifenesin Dm Syrup) 5 Ml Syrup, 10 ML PO PRN Q6HRS PRN for COUGH for 30 Days, #120 Prescribed by: ARLETTE BONILLA MD on 01/23/21 1356 Justicifation of Admission Dx: Justifications for Admission: Justification of Admission Dx: Yes Respiratory Failure: Severe Resp Distress ARLETTE BONILLA MD Jan 23, 2021 14:01
--- NOTE | 2021-01-23 16:30 | NUR ---
Discharge Note: Patient was discharged home with self care. Patients IV was discontinued per RN without any complications. Patient was given discharge summary/instructions, follow-ups and educational material. Patient did not have any further questions or concerns. Patient was also given a new home oxygen tank to take with her, patient was instructed to call the oxygen company when she arrived at home. Patient stated she understood. Patient was taken down via wheelchair to ER entrance with all personal belongings, accompanied by MANE Romero, where her mother was waiting for her to take her home.
== END 2021-01-23 16:30 | disposition home or self-care (01) | DRG 177 ==
LOC: ER 14:56 → 5 SOUTH 16:25 → 5 NORTH 01-19 08:27
PROVIDERS: ADMIT Internal Medicine; ATTEND Internal Medicine
PROC: XW033E5 Introduction of Remdesivir Anti-infective into Peripheral Vein, Percutaneous Approach, New Technology Group 5 (ICD-10-PCS; principal; 2021-01-18)
PROC: XW033H5 Introduction of Tocilizumab into Peripheral Vein, Percutaneous Approach, New Technology Group 5 (ICD-10-PCS; 2021-01-18)
DX: U07.1 COVID-19 (principal); J12.82 Pneumonia due to coronavirus disease 2019; J96.01 Acute respiratory failure with hypoxia; E87.1 Hypo-osmolality and hyponatremia; E87.8 Other disorders of electrolyte and fluid balance, not elsewhere classified; Z88.8 Allergy status to other drugs, medicaments and biological substances; Z28.3 Underimmunization status
CPT/HCPCS: 36415; 71045; 80048; 80053; 83735; 84100; 85025; 85379; 86140; 87798; 93005; 94618; 96365; 96375; J1100; J1650; J2060; J3262; J7050; 99285-25; G0378; J7030